=== PATIENT | male | born 1940 | race Caucasian/White ===

== ENCOUNTER 2017-02-10 10:44 | Inpatient (IN) | payer MEDICARE, MEDICAID ==
[~2017-02-10] VITALS: Ht 175.3 cm; Wt 81.3 kg
[2017-02-10] VITALS (8 sets, daily range): BP systolic 161–188; BP diastolic 72–76; PULSE 60–66; RESP 22–25; TEMP 98–98.2; O2SAT 94–95
[2017-02-10] MEDS ORDERED: D5-1/2 NS + KCL 20 MEQ INJ 1,000 ML IV SCH (14:49)
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
[2017-02-10] MEDS ORDERED: BISACODYL 10 MG SUPP RECTAL PRN (15:00)
[2017-02-10] MEDS ORDERED: PILL SPLITTER OTHER PRN (15:00)
[2017-02-10] MEDS ORDERED: LACTULOSE SYRUP 20 GM/30 ML CUP PO PRN (15:00)
[2017-02-10] MEDS ORDERED: ENOXAPARIN SODIUM 30 MG/0.3 ML SYRINGE SQ SCH (16:00)
[2017-02-10 16:24] LABS: BASOPHIL # 0.1 TH/MM3 (0-0.2); BASOPHIL % 0.4 % (0.0-2.0); HEMATOCRIT 32.8 % (39.0-51.0); HEMO FLAGS DIFF FINAL; LYMPH % 7.7 % (9.0-44.0); LYMPHOCYTE # 2.1 TH/MM3 (1.0-4.8); MEAN CORPUSCULAR HEMOGLOBIN 29.6 PG (27.0-34.0); MEAN CORPUSCULAR HGB CONC 32.9 % (32.0-36.0); MONO % 7.3 % (0.0-8.0); NEUT % 84.6 % (16.0-70.0); PLATELET COUNT 297 TH/MM3 (150-450); RED BLOOD COUNT 3.65 MIL/MM3 (4.50-5.90); RED CELL DISTRIBUTION WIDTH 13.9 % (11.6-17.2); WHITE BLOOD COUNT 27.2 TH/MM3 (4.0-11.0)
[2017-02-10 16:32] LABS: PROTHROMBIN TIME - PATIENT 10.8 SEC (9.8-11.6)
--- NOTE | 2017-02-10 16:36 | RADRPT ---
EXAM DATE/TIME: 02/10/2017 14:01 [facility] COMPARISON: No previous studies available for comparison. INDICATIONS : Short of breath. MEDICAL HISTORY : None. SURGICAL HISTORY : None. ENCOUNTER: Initial ACUITY: 1 day PAIN SCORE: Non-responsive. LOCATION: Bilateral chest FINDINGS: A single view of the chest demonstrates the lungs to be symmetrically aerated without evidence of mas s, infiltrate or effusion. The cardiomediastinal contours are unremarkable. Osseous structures are intact. Large calcified right paratracheal lymph node CONCLUSION: Normal examination. Elkin Doran MD on February 10, 2017 at 16:34 Board Certified Radiologist. This report was verified electronically.
[2017-02-10 16:49] LABS: BICARBONATE 26.2 MEQ/L (21.0-32.0); INDIRECT BILIRUBIN 0.1 MG/DL (0.0-0.8); TOTAL BILIRUBIN ADULT 0.3 MG/DL (0.2-1.0)
[2017-02-10 16:51] LABS: POTASSIUM 2.7 MEQ/L (3.5-5.1)
[2017-02-10] MEDS: MORPHINE SULFATE 2 MG/ML INJ IV PUSH PRN ×2 (17:19→20:25)
[2017-02-10] MEDS ORDERED: POTASSIUM PHOSPHATE INJ 30 MMOL in SODIUM CHLOR 0.9% 250 ML INJ 250 ML IV PRN (17:45)
[2017-02-10] MEDS ORDERED: POTASSIUM CHLOR 40 MEQ PREMIX 100 ML IV PRN ×2 (17:45)
[2017-02-10] MEDS ORDERED: POTASSIUM PHOSPHATE MONOBASIC 500 MG TAB PO PRN (17:45)
[2017-02-10] MEDS ORDERED: MAGNESIUM SULFATE INJ 2 GM in SODIUM CHLORIDE 0.9% INJ 96 ML IV PRN (17:45)
[2017-02-10] MEDS ORDERED: SODIUM PHOSPHATE INJ 30 MMOL in SODIUM CHLOR 0.9% 250 ML INJ 240 ML IV PRN (17:45)
[2017-02-10] MEDS ORDERED: MAGNESIUM OXIDE 400 MG TAB PO PRN (17:45)
[2017-02-10] MEDS ORDERED: POTASSIUM CHLORIDE 25 MEQ EFFERVESCENT TAB PO PRN (17:45)
[2017-02-10] MEDS ORDERED: POTASSIUM PHOSPHATE MONOBASIC 500 MG TAB PO/TUBE PRN (17:45)
[2017-02-10] MEDS ORDERED: POTASSIUM CHLOR 20 MEQ PREMIX 100 ML IV PRN (17:45)
[2017-02-10] MEDS ORDERED: MAGNESIUM SULFATE INJ 4 GM in SODIUM CHLORIDE 0.9% INJ 92 ML IV PRN (17:45)
[2017-02-10] MEDS ORDERED: SODIUM CHLOR 0.9% 1000 ML INJ 1,000 ML IV ONE (18:00)
[2017-02-10] MEDS ORDERED: CEFEPIME INJ 2,000 MG in SODIUM CHLORIDE 0.9% INJ 100 ML IV SCH (18:00)
[2017-02-10] MEDS ORDERED: RESP: ALBUTEROL 2.5 MG/IPRATROPIUM 0.5 MG NEB (PRN) NEB (18:15)
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
[2017-02-10] MEDS: SODIUM CHLOR 0.9% 1000 ML INJ 1,000 ML IV SCH (18:26)
[2017-02-10 18:47] LABS: MAGNESIUM 1.9 MG/DL (1.5-2.5)
[2017-02-10] MEDS: INSULIN ASPART SUPPLEMENTAL SCALE SQ SCH ×2 (18:51→22:00)
--- NOTE | 2017-02-10 19:17 | RADRPT ---
EXAM DATE/TIME: 02/10/2017 17:24 [facility] COMPARISON: No previous studies available for comparison. INDICATIONS : Abdomen pain. MEDICAL HISTORY : Hypertension. Carcinoma, prostate. Diabetes. SURGICAL HISTORY : Cataracts. ENCOUNTER: Initial ACUITY: 1 week PAIN SCORE: 4/10 LOCATION: Right upper quadrant MEASUREMENTS: LIVER: 18.8 cm length COMMON DUCT: 9 mm RIGHT KIDNEY: 10.5 x 4.9 x 5.4 cm FINDINGS: LIVER: Diffuse and fairly homogeneous coarse echotexture without focal lesion or significant ductal dilatati on. Hepatopedal flow is documented in the portal vein. COMMON DUCT: No intraluminal mass or stone visualized. GALLBLADDER: No shadowing stones seen. Gallbladder wall is prominent measuring up to 7 mm. No pericholecystic fl uid. PANCREAS: Not well seen RIGHT KIDNEY: No evidence of hydronephrosis, stone, or mass. CONCLUSION: 1. Hepatomegaly without focal lesion. 2. Gallbladder wall thickening and dilation of the common bile duct without demonstrable gallstones. May consider performing hepatobiliary tract scan to evaluate for acalculous cholecystitis. Mickey Carmona MD on February 10, 2017 at 19:12 Board Certified Radiologist. This report was verified electronically.
[2017-02-10] MEDS ORDERED: DILT1TAB8 PO (19:41)
[2017-02-10] MEDS ORDERED: TAMS0.4C4 PO (19:41)
[2017-02-10] MEDS ORDERED: GLIP5TAB8 PO (19:41)
[2017-02-10] MEDS ORDERED: ATOR10TA15 PO (19:41)
[2017-02-10] MEDS ORDERED: LISI20TA PO (19:41)
[2017-02-10] MEDS: METOPROLOL TARTRATE 25 MG TAB PO SCH (20:04)
[2017-02-10] MEDS: hydrALAZINE HCL 20 MG/ML VIAL IV PUSH PRN (20:05)
[2017-02-10] MEDS: CEFEPIME INJ 2,000 MG in SODIUM CHLORIDE 0.9% INJ 100 ML IV SCH (20:05)
[2017-02-10] MEDS: ATORVASTATIN 40 MG TAB PO SCH (20:06)
[2017-02-10] MEDS: DOCUSATE SODIUM 50 MG/SENNA 8.6 MG TAB PO SCH (20:06)
[2017-02-10] MEDS: metroNIDAZOLE 250 MG INJ 50 ML IV SCH ×2 (20:06→20:40)
[2017-02-10] MEDS ORDERED: MAGNESIUM HYDROXIDE SUSP 30 ML CUP PO PRN (21:00)
[2017-02-10] MEDS ORDERED: SENNOSIDES 8.6 MG TAB PO PRN (21:00)
[2017-02-10] MEDS: POTASSIUM CHLOR 20 MEQ PREMIX 100 ML IV PRN (21:03)
--- NOTE | 2017-02-10 22:22 | MB ---
cc: ABBY MENDOZA DATE OF CONSULTATION: 02/10/2017 REASON FOR CONSULTATION: Evaluate for possible cholecystitis. HISTORY OF PRESENT ILLNESS: Mr. Chicas is a pleasant 76 year-old gentleman who was transferred over from [facility], under the care of Dr. Zeferino Gomez for evaluation of abdominal pain. He states that over the last two weeks he has had continuous abdominal pain. He describes the pain as initially a burning-type pain that was in the upper abdomen, but now he states the pain is all over. Apparently he has been hospitalized at [facility], for several days where he has had a fairly extensive workup which was fairly unremarkable. Specifically he had two CTs of the abdomen and pelvis as well as an ultrasound and HIDA scan. There was a question of possible SMA stenosis and mesenteric ischemia was considered. He is also noted to have a thickened gallbladder wall on his ultrasound and some portal edema on the CT, however, apparently he had a HIDA scan which was fairly unremarkable according to the family. Unfortunately none of the reports are available, we only have the films. In reviewing the films, I do see the periportal edema that they talked about on the CT scan but on the HIDA scan, I see visualization of the gallbladder and apparent emptying. The patient states the pain is better than when he initially came in. He did have some nausea and vomiting on Wednesday but none since. He denies any fever or chills. He reports overall malaise and not feeling well, and loss of appetite. He was brought over to [facility] for further workup and evaluation. The patient states the pain began shortly after he had a shot for his prostate cancer on 01/25. He states he has had constipation and only two bowel movements in the last week. He denies any jaundice. He denies any fatty food intolerance. He denies any previous episodes of abdominal pain. PAST MEDICAL HISTORY: 1. Hypertension. 2. Metastatic prostate cancer. PAST SURGICAL HISTORY: No abdominal surgeries according to him. FAMILY HISTORY: Noncontributory. SOCIAL HISTORY He admits alcohol and cigarette use. [place] [facility]. REVIEW OF SYSTEMS: Please see HPI. PHYSICAL EXAMINATION VITAL SIGNS: Temperature is 98, pulse is 60, blood pressure 140/70, respiratory rate 20, O2 saturation 100% on 2 liters nasal cannula. GENERAL: An older gentleman sitting in his bed, who does not appear to be in significant distress. He is accompanied by his family. HEENT: Pupils equal, round reactive to light. Sclerae are white. Oropharynx is clear and moist. Neck is supple. No masses. Lungs: Clear to auscultation bilaterally. Heart: S1-S2 no murmur. Abdomen: Soft, he does have some right upper quadrant tenderness on deep palpation. No palpable liver or gallbladder that I can appreciate. He has active bowel sounds. He has no rebound or guarding. No obvious peritonitis. Extremities: Free range of motion x4. Neurologically: He is alert and oriented x3. LABORATORY DATA White blood cell count 27, hemoglobin 10, platelet count is 297. Electrolytes remarkable for hypokalemia at 2.7. His LFTs were all within normal limits including his alkaline phosphatase. Amylase is normal as well. IMAGING STUDIES Pending at this time. IMPRESSION Abdominal pain of undetermined etiology. PLAN At this point I reviewed all his imaging with Dr. Jesús Calloway review of his imaging with Dr. Jesús Laguna in radiology. The only thing Dr. Laguna noted was the periportal edema on the second CT scan. His gallbladder did appear slightly thickened on the initial ultrasound. Certainly the patient's elevated white count is concerning but his LFTs are all completely normal. On his physical examination he does localize some right upper quadrant pain. At this point I am unsure of the exact etiology of his pain. I have ordered repeat ultrasound to see if he has any pericholecystic fluid or any gallbladder wall thickening. Also will order lactate to see if he has an elevate lactate consistent with ischemic bowel, although his physical examination and history is not really too consistent with that. This has been going on for several weeks. Based on his further imaging and workup, will consider operative intervention. Although I am unsure of the exact etiology of the pain, we could consider diagnostic laparoscopy, although I am not sure that this would be too helpful at this point with no specific diagnosis. All this was discussed with the family at the bedside. Will follow up on his additional imaging and lab work. Thank you very much for allowing me to participate in his care. MD ANUSHA Campbell/MARK /5:14 PM /10:06 PM
[2017-02-11] VITALS (12 sets, daily range): BP systolic 155–188; BP diastolic 69–81; PULSE 62–75; RESP 20–26; TEMP 98.7–99.4; O2SAT 91–98
[2017-02-11] MEDS: INSULIN ASPART SUPPLEMENTAL SCALE SQ SCH ×6 (01:26→21:45)
[2017-02-11] MEDS: SODIUM CHLOR 0.9% 1000 ML INJ 1,000 ML IV SCH ×5 (02:00→21:17)
[2017-02-11] MEDS: POTASSIUM CHLOR 20 MEQ PREMIX 100 ML IV PRN ×4 (02:08→23:10)
[2017-02-11] MEDS: metroNIDAZOLE 250 MG INJ 50 ML IV SCH ×3 (03:46→21:33)
[2017-02-11 05:38] LABS: AUTOMATED NEUTROPHIL # 20.8 TH/MM3 (1.8-7.7); BASOPHIL % 0.2 % (0.0-2.0); EOSINOPHIL % 0.1 % (0.0-4.0); HEMATOCRIT 33.2 % (39.0-51.0); HEMO FLAGS DIFF FINAL; LYMPH % 8.1 % (9.0-44.0); MEAN CELL VOLUME 90.3 FL (80.0-100.0); MEAN CORPUSCULAR HEMOGLOBIN 30.4 PG (27.0-34.0); MEAN CORPUSCULAR HGB CONC 33.7 % (32.0-36.0); NEUT % 84.6 % (16.0-70.0); PLATELET COUNT 323 TH/MM3 (150-450); RED BLOOD COUNT 3.68 MIL/MM3 (4.50-5.90); RED CELL DISTRIBUTION WIDTH 14.1 % (11.6-17.2); WHITE BLOOD COUNT 24.6 TH/MM3 (4.0-11.0)
[2017-02-11 06:01] LABS: ALKALINE PHOSPHATASE 79 U/L (45-117); ALT (GPT) 20 U/L (12-78); ANION GAP 10 MEQ/L (5-15); AST (GOT) 18 U/L (15-37); BLOOD UREA NITROGEN 16 MG/DL (7-18); CHLORIDE 106 MEQ/L (98-107); GLOMERULAR FILTRATION RATE 71 ML/MIN (>89); SODIUM (NA) 140 MEQ/L (136-145); TOTAL BILIRUBIN ADULT 0.3 MG/DL (0.2-1.0)
[2017-02-11 06:15] LABS: POTASSIUM 2.9 MEQ/L (3.5-5.1)
--- NOTE | 2017-02-11 08:56 | PD.VS.PN ---
Subjective Subjective/Hospital Course Pt notes that he has less abdominal pain this morning; + hungry Objective Vitals/I&O Date Time Temp Pulse Resp B/P (MAP) Pulse Ox O2 Delivery O2 Flow Rate FiO2 02/11/17 07:00 94 Room Air 02/11/17 06:00 64 02/11/17 04:00 64 02/11/17 04:00 99.0 64 24 157/70 (99) 91 02/11/17 02:00 64 02/11/17 00:00 63 02/11/17 00:00 99.4 64 26 165/74 (104) 93 02/10/17 22:00 66 02/10/17 20:00 98.0 62 25 188/74 (112) 94 02/10/17 20:00 62 02/10/17 19:00 92 Room Air 02/10/17 18:00 60 02/10/17 16:00 61 02/10/17 15:52 98.2 62 22 173/76 (108) 94 02/10/17 15:00 61 02/10/17 14:52 61 22 161/72 (101) 95 02/10/17 14:45 61 02/10/17 14:45 93 Room Air 02/11/17 02/11/17 02/11/17 07:00 15:00 23:00 Intake Total 363 ml Output Total 825 ml Balance -462 ml Physical Exam + TTP R UQ no rebound palpable femoral pulses Laboratory Laboratory Tests Test 02/10/17 15:00 02/10/17 17:28 02/10/17 18:00 02/11/17 05:13 White Blood Count 27.2 24.6 Red Blood Count 3.65 3.68 Hemoglobin 10.8 11.2 Hematocrit 32.8 33.2 Mean Corpuscular Volume 90.0 90.3 Mean Corpuscular Hemoglobin 29.6 30.4 Mean Corpuscular Hemoglobin Concent 32.9 33.7 Red Cell Distribution Width 13.9 14.1 Platelet Count 297 323 Mean Platelet Volume 8.2 8.1 Neutrophils (%) (Auto) 84.6 84.6 Lymphocytes (%) (Auto) 7.7 8.1 Monocytes (%) (Auto) 7.3 7.0 Eosinophils (%) (Auto) 0.0 0.1 Basophils (%) (Auto) 0.4 0.2 Neutrophils # (Auto) 23.0 20.8 Lymphocytes # (Auto) 2.1 2.0 Monocytes # (Auto) 2.0 1.7 Eosinophils # (Auto) 0.0 0.0 Basophils # (Auto) 0.1 0.0 CBC Comment DIFF FINAL DIFF FINAL Differential Comment Prothrombin Time 10.8 Prothromb Time International Ratio 1.0 Activated Partial Thromboplast Time 29.0 Blood Urea Nitrogen 18 16 Creatinine 1.26 1.01 Random Glucose 166 166 Total Protein 6.7 6.7 Albumin 2.2 2.2 Calcium Level 8.2 8.1 Phosphorus Level 1.5 Magnesium Level 1.9 2.0 Alkaline Phosphatase 78 79 Aspartate Amino Transf (AST/SGOT) 18 18 Alanine Aminotransferase (ALT/SGPT) 20 20 Total Bilirubin 0.3 0.3 Direct Bilirubin 0.2 Sodium Level 135 140 Potassium Level 2.7 2.9 Chloride Level 102 106 Carbon Dioxide Level 26.2 24.0 Anion Gap 7 10 Estimat Glomerular Filtration Rate 55 71 Indirect Bilirubin 0.1 Amylase Level 16 Lactic Acid Level 1.2 Nasal Screen MRSA (PCR) MRSA NOT DETECTED Date/Time Source Procedure Growth Status 02/11/17 05:19 Blood Peripheral Aerobic Blood Culture Pending Received 02/11/17 05:19 Blood Peripheral Anaerobic Blood Culture Pending Received Imaging Last 48 hours Impressions Gall Bladder Ultrasound 02/10/17 0000 Signed Impressions: Service Date/Time: Friday, February 10, 2017 17:24 - CONCLUSION: 1. Hepatomegaly without focal lesion. 2. Gallbladder wall thickening and dilation of the common bile duct without demonstrable gallstones. May consider performing hepatobiliary tract scan to evaluate for acalculous cholecystitis. Mickey Carmona MD Chest X-Ray 02/10/17 0000 Signed Impressions: Service Date/Time: Friday, February 10, 2017 14:01 - CONCLUSION: Normal examination. Elkin Doran MD Assessment and Plan Plan Abdominal pain of unclear etiology - gallbladder vs atypical mesenteric ischemia 1. replete K 2. Bowel regimen as no BM in several days 3. appreciate general surgery input 4. If pain doesn't improve or gets worse, will perform mesenteric angiography and stenting tomorrow (WED) 5. ok to try po from my standpoint Zeferino Gomez MD FACS VI sales support engineer [facility] - Heart and Vascular Surgery at [facility] [phone] Zeferino Gomez MD Feb 11, 2017 08:56
--- NOTE | 2017-02-11 09:36 | HHI.PR ---
Subjective Subjective Notes no acute issues, still with persistent pain, no fevers wbc 24 k Objective Vitals/I&O Vital Signs Date Time Temp Pulse Resp B/P (MAP) Pulse Ox O2 Delivery O2 Flow Rate FiO2 02/11/17 07:00 94 Room Air 02/11/17 06:00 64 02/11/17 04:00 99.0 24 157/70 (99) Labs Laboratory Tests Test 02/10/17 15:00 02/10/17 17:28 02/10/17 18:00 02/11/17 05:13 White Blood Count 27.2 24.6 Red Blood Count 3.65 3.68 Hemoglobin 10.8 11.2 Hematocrit 32.8 33.2 Mean Corpuscular Volume 90.0 90.3 Mean Corpuscular Hemoglobin 29.6 30.4 Mean Corpuscular Hemoglobin Concent 32.9 33.7 Red Cell Distribution Width 13.9 14.1 Platelet Count 297 323 Mean Platelet Volume 8.2 8.1 Neutrophils (%) (Auto) 84.6 84.6 Lymphocytes (%) (Auto) 7.7 8.1 Monocytes (%) (Auto) 7.3 7.0 Eosinophils (%) (Auto) 0.0 0.1 Basophils (%) (Auto) 0.4 0.2 Neutrophils # (Auto) 23.0 20.8 Lymphocytes # (Auto) 2.1 2.0 Monocytes # (Auto) 2.0 1.7 Eosinophils # (Auto) 0.0 0.0 Basophils # (Auto) 0.1 0.0 CBC Comment DIFF FINAL DIFF FINAL Differential Comment Prothrombin Time 10.8 Prothromb Time International Ratio 1.0 Activated Partial Thromboplast Time 29.0 Blood Urea Nitrogen 18 16 Creatinine 1.26 1.01 Random Glucose 166 166 Total Protein 6.7 6.7 Albumin 2.2 2.2 Calcium Level 8.2 8.1 Phosphorus Level 1.5 Magnesium Level 1.9 2.0 Alkaline Phosphatase 78 79 Aspartate Amino Transf (AST/SGOT) 18 18 Alanine Aminotransferase (ALT/SGPT) 20 20 Total Bilirubin 0.3 0.3 Direct Bilirubin 0.2 Sodium Level 135 140 Potassium Level 2.7 2.9 Chloride Level 102 106 Carbon Dioxide Level 26.2 24.0 Anion Gap 7 10 Estimat Glomerular Filtration Rate 55 71 Indirect Bilirubin 0.1 Amylase Level 16 Lactic Acid Level 1.2 Nasal Screen MRSA (PCR) MRSA NOT DETECTED Test 02/11/17 09:24 Date/Time Source Procedure Growth Status 02/11/17 05:19 Blood Peripheral Aerobic Blood Culture Pending Received 02/11/17 05:19 Blood Peripheral Anaerobic Blood Culture Pending Received Abdomen: Other (mild right sided ttp, no rebound, ) A/P Assessment and Plan 76 y/o m with abdominal pain uncertain etiology mesenteric ischemia or acalculous mera, leukocytosis PLAN Ok for clear diet abx pain control possible dx lap, possible lap mera will discuss with Austin Lopez MD Feb 11, 2017 09:35
[2017-02-11 09:38] LABS: HEMATOCRIT 34.8 % (39.0-51.0); MEAN CELL VOLUME 89.9 FL (80.0-100.0); MEAN CORPUSCULAR HEMOGLOBIN 30.3 PG (27.0-34.0); MEAN CORPUSCULAR HGB CONC 33.7 % (32.0-36.0); PLATELET COUNT 315 TH/MM3 (150-450); RED BLOOD COUNT 3.87 MIL/MM3 (4.50-5.90); RED CELL DISTRIBUTION WIDTH 14.4 % (11.6-17.2); REVIEW FLAG FINAL; WHITE BLOOD COUNT 23.7 TH/MM3 (4.0-11.0)
[2017-02-11] MEDS ORDERED: INFLUENZA VIRUS VACCINE (QUADRIVALENT) 0.5 ML SYR IM ONE (10:00)
[2017-02-11] MEDS: DOCUSATE SODIUM 50 MG/SENNA 8.6 MG TAB PO SCH ×2 (10:07→20:22)
[2017-02-11] MEDS: ASPIRIN 325 MG TAB PO SCH (10:07)
[2017-02-11] MEDS: CEFEPIME INJ 2,000 MG in SODIUM CHLORIDE 0.9% INJ 100 ML IV SCH ×2 (10:07→20:23)
[2017-02-11] MEDS: PANTOPRAZOLE SOD 40 MG DELAYED RELEASE TAB PO SCH (10:07)
[2017-02-11] MEDS: METOPROLOL TARTRATE 25 MG TAB PO SCH ×2 (10:08→20:22)
--- NOTE | 2017-02-11 10:39 | EKG ---
Date Performed: 02/10/2017 Time Performed: 16:54:57 PTAGE: 76 years EKG: SINUS BRADYCARDIA WITH FIRST DEGREE AV BLOCK NONSPECIFIC ST & T-WAVE ABNORMALITY ABNORMAL E CG NO PREVIOUS TRACING DOCTOR: Salty Gil Interpretating Date/Time 02/11/2017 10:38:03
[2017-02-11] MEDS: hydrALAZINE HCL 20 MG/ML VIAL IV PUSH PRN ×3 (11:54→23:10)
--- NOTE | 2017-02-11 14:23 | HHI.CCPN ---
Objective Vital Signs Date Time Temp Pulse Resp B/P (MAP) Pulse Ox O2 Delivery O2 Flow Rate FiO2 02/11/17 12:00 62 02/11/17 12:00 98.9 26 165/74 (104) 98 02/11/17 07:00 Room Air Intake and Output 02/11/17 02/11/17 02/12/17 08:00 16:00 00:00 Intake Total 363 ml Output Total 825 ml Balance -462 ml Result Diagram: 02/11/17 0924 02/11/17 0513 Madelin Connolly MD Feb 11, 2017 14:23
--- NOTE | 2017-02-11 14:44 | HHI.CCPN ---
Subjective Remarks/Hospital Course Patient is a 70-year-old male with past medical history significant for hypertension, diabetes, COPD, continue smoking, metastatic prostate cancer who was admitted to outside hospital in [place] for with 2 weeks of abdominal pain. Apparently he had WBC count in 30,000s and had gallbladder sludge on US but HIDA scan was negative per report. CT showed mesenteric stenosis and patient was transferred to [place] under Dr. Gomez. According to patient his abdominal pain started after getting hormonal therapy (anti-testosterone therapy ) for metastatic prostate CA on 01/25. No diarrhea, but has constipation. I evaluated the patient in the ICU. He appears to be lying comfortably on the bed. On clinical exam has severe tenderness in the right lower quadrant and moderate tenderness in the epigastric region. Abdominal ultrasound had been performed but patient report pending at this time. Patient's white count is 27, 000 and clinical exam is concerning for acute cholecystitis. Gen. surgery Dr. viveros has seen him. I will check blood culture urine culture, place him on cefepime and Flagyl. Patient may need cholecystostomy/cholecystectomy vs mesenteric artery stenting based on clinical course. Discussed with Dr. Gomez and Dr. Viveros 02/11: Subjectively feels slightly better. press tender in the right upper quadrant. WBC count is improving. Discussed with Dr. Duran today- he is considering diagnostic laparoscopy and possible lap cholecystectomy if indicated Objective Vital Signs Date Time Temp Pulse Resp B/P (MAP) Pulse Ox O2 Delivery O2 Flow Rate FiO2 02/11/17 12:00 62 02/11/17 12:00 98.9 26 165/74 (104) 98 02/11/17 07:00 Room Air Intake and Output 02/11/17 02/11/17 02/12/17 08:00 16:00 00:00 Intake Total 363 ml Output Total 825 ml Balance -462 ml Result Diagram: 02/11/1792302/11/17 0513 Objective Remarks GENERAL: Alert awake in no distress SKIN: Warm dry HEAD: AT/NC EYES: Pupils equal round and reactive. No scleral icterus. No injection or drainage. ENT: Nose without bleeding. Airway patent. NECK: Trachea midline. No JVD or lymphadenopathy. Supple, nontender, CARDIOVASCULAR: Regular rate and rhythm without murmurs, gallops, or rubs. RESPIRATORY: Clear to auscultation. Breath sounds equal bilaterally. No wheezes , rales, or rhonchi. GASTROINTESTINAL: Abdomen soft, moderate to severe RUQ tenderness and moderate tenderness epigastric region NEUROLOGICAL: AO x3. No focal deficits. 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 Otherwise minimize sedation RESP: - Nasal cannula oxygen. DuoNeb every 6 hours when necessary - Strongly advised to quit smoking CV: - Normal saline IV fluids maintenance 125 ml per hour - Lactic acid normal GI/ID: - Clear liquid diet. IV famotidine - GB US -shows gallbladder wall thickening and dilatation. Consider HIDA - Broad-spectrum antibiotics with cefepime and Flagyl - Gen surgery considering diagnostic laparoscopy and possible lap cholecystectomy - F/u culture - Gen. surgery consulted, vascular surgery Dr. Gomez - If abdominal pain and white count not improving may need mesenteric artery stenting - Consider GI consult and EGD/colonoscopy if not improving - Stool for Hemoccult, stool H pylori : - Monitor renal function closely. Accurate I/O HEME: - Leukocytosis most likely secondary to sepsis, however mesenteric ischemia cannot be ruled out completely at this time ENDO: - Electrolyte replacement per protocol - Sliding scale insulin PROPH: - Bilateral lower extremity SCDs. Lovenox, Famotidine LINES: - Utilize peripheral IVs, central line if needed Level 2 Madelin Connolly MD Feb 11, 2017 14:44
[2017-02-11] MEDS: POTASSIUM CHLORIDE 25 MEQ EFFERVESCENT TAB PO SCH ×2 (15:37→20:22)
[2017-02-11] MEDS: ENOXAPARIN SODIUM 30 MG/0.3 ML SYRINGE SQ SCH (15:37)
[2017-02-11] MEDS: ATORVASTATIN 40 MG TAB PO SCH (20:22)
[2017-02-12] VITALS (13 sets, daily range): BP systolic 139–164; BP diastolic 63–98; PULSE 72–88; RESP 18–27; TEMP 97.2–99.1; O2SAT 92–100
[2017-02-12] MEDS: INSULIN ASPART SUPPLEMENTAL SCALE SQ SCH ×6 (02:00→22:40)
[2017-02-12] MEDS: POTASSIUM CHLOR 20 MEQ PREMIX 100 ML IV PRN ×2 (02:00→05:45)
[2017-02-12] MEDS: hydrALAZINE HCL 20 MG/ML VIAL IV PUSH PRN ×3 (03:22→20:08)
[2017-02-12] MEDS: metroNIDAZOLE 250 MG INJ 50 ML IV SCH ×3 (04:26→19:45)
[2017-02-12] MEDS: SODIUM CHLOR 0.9% 1000 ML INJ 1,000 ML IV SCH (04:36)
[2017-02-12 04:53] LABS: AUTOMATED NEUTROPHIL # 13.2 TH/MM3 (1.8-7.7); BASOPHIL % 0.3 % (0.0-2.0); EOSINOPHIL # 0.1 TH/MM3 (0-0.4); EOSINOPHIL % 0.4 % (0.0-4.0); HEMATOCRIT 30.8 % (39.0-51.0); HEMO FLAGS DIFF FINAL; LYMPH % 10.6 % (9.0-44.0); LYMPHOCYTE # 1.7 TH/MM3 (1.0-4.8); MEAN CELL VOLUME 89.6 FL (80.0-100.0); MEAN CORPUSCULAR HGB CONC 33.5 % (32.0-36.0); MONO % 8.4 % (0.0-8.0); NEUT % 80.3 % (16.0-70.0); PLATELET COUNT 291 TH/MM3 (150-450); RED BLOOD COUNT 3.44 MIL/MM3 (4.50-5.90); RED CELL DISTRIBUTION WIDTH 14.6 % (11.6-17.2); WHITE BLOOD COUNT 16.4 TH/MM3 (4.0-11.0)
[2017-02-12 05:23] LABS: BICARBONATE 19.7 MEQ/L (21.0-32.0); CALCIUM-PROTEIN CORRECTED 7.5 MG/DL (8.5-10.1); MAGNESIUM 1.6 MG/DL (1.5-2.5); TOTAL BILIRUBIN ADULT 0.3 MG/DL (0.2-1.0)
[2017-02-12 05:30] LABS: POTASSIUM 2.9 MEQ/L (3.5-5.1)
[2017-02-12] MEDS ORDERED: LACTATED RINGER'S 1000 ML IV PRN (07:00)
[2017-02-12] MEDS ORDERED: SODIUM CHLORID 0.9% 500 ML IV PRN (07:00)
[2017-02-12] MEDS ORDERED: POVIDONE IODINE 5% (ANTISEPSIS KIT) 4 APPLICATIONS EACH NARE PRN (07:00)
[2017-02-12] MEDS ORDERED: INSULIN HUMAN REGULAR 1,000 UNITS/10 ML VIAL SQ PRN (07:00)
[2017-02-12] MEDS ORDERED: CHLORHEXIDINE GLUCONATE 2 % 1 PACK (2 CLOTHS) TOPICAL PRN (07:00)
[2017-02-12] MEDS ORDERED: BUPIVACAINE/EPINEPHRINE 0.25% PF 30 ML VIAL ONE (07:07)
[2017-02-12] MEDS ORDERED: MAGNESIUM SULFATE 1 GM PREMIX 100 ML IV ONE (08:00)
--- NOTE | 2017-02-12 08:11 | HHI.CCPN ---
Subjective Remarks/Hospital Course Patient is a 70-year-old male with past medical history significant for hypertension, diabetes, COPD, continue smoking, metastatic prostate cancer who was admitted to outside hospital in [place] for with 2 weeks of abdominal pain. Apparently he had WBC count in 30,000s and had gallbladder sludge on US but HIDA scan was negative per report. CT showed mesenteric stenosis and patient was transferred to [place] under Dr. Gomez. According to patient his abdominal pain started after getting hormonal therapy (anti-testosterone therapy ) for metastatic prostate CA on 01/25. No diarrhea, but has constipation. I evaluated the patient in the ICU. He appears to be lying comfortably on the bed. On clinical exam has severe tenderness in the right lower quadrant and moderate tenderness in the epigastric region. Abdominal ultrasound had been performed but patient report pending at this time. Patient's white count is 27, 000 and clinical exam is concerning for acute cholecystitis. Gen. surgery Dr. viveros has seen him. I will check blood culture urine culture, place him on cefepime and Flagyl. Patient may need cholecystostomy/cholecystectomy vs mesenteric artery stenting based on clinical course. Discussed with Dr. Gomez and Dr. Viveros 02/11: Subjectively feels slightly better. wreath machine tender in the right upper quadrant. WBC count is improving. Discussed with Dr. Duran today- he is considering diagnostic laparoscopy and possible lap cholecystectomy if indicated 02/12: To OR for diagnostic lap today. Right upper quadrant tenderness is improved but still present. WBC count down to 16.4, with antibiotics cefepime and Flagyl on board. Clinical presentation is still consistent with cholecystitis Objective Vital Signs Date Time Temp Pulse Resp B/P (MAP) Pulse Ox O2 Delivery O2 Flow Rate FiO2 02/12/17 07:00 97 Room Air 02/12/17 06:00 76 02/12/17 04:00 98.6 26 153/67 (95) Intake and Output 02/12/17 02/12/17 02/13/17 08:00 16:00 00:00 Intake Total 1777 ml Output Total 700 ml Balance 1077 ml Result Diagram: 02/12/1742602/12/17426 Objective Remarks GENERAL: Alert awake in no distress SKIN: Warm dry HEAD: AT/NC EYES: Pupils equal round and reactive. No scleral icterus. No injection or drainage. ENT: Nose without bleeding. Airway patent. NECK: Trachea midline. No JVD or lymphadenopathy. Supple, nontender, CARDIOVASCULAR: Regular rate and rhythm without murmurs, gallops, or rubs. RESPIRATORY: Clear to auscultation. Breath sounds equal bilaterally. No wheezes , rales, or rhonchi. GASTROINTESTINAL: Abdomen soft, moderate RUQ tenderness and mild tenderness epigastric region NEUROLOGICAL: AO x3. No focal deficits. 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 Otherwise minimize sedation RESP: - Nasal cannula oxygen. DuoNeb every 6 hours when necessary - Strongly advised to quit smoking CV: - Normal saline IV fluids maintenance 125 ml per hour - Lactic acid normal GI/ID: - Clear liquid diet., was NPO after midnight for OR. IV famotidine - GB US -shows gallbladder wall thickening and dilatation. OR for diagnostic laparoscopy with Dr. viveros today - Broad-spectrum antibiotics with cefepime and Flagyl - F/u culture. Wbc downtrending - Vascular surgery Dr. Gomez may do mesenteric artery stenting depending on clinical course - Consider GI consult and EGD/colonoscopy if not improving - Stool for Hemoccult, stool H [id number] : - Monitor renal function closely. Accurate I/O HEME: - Leukocytosis most likely secondary to sepsis, however mesenteric ischemia cannot be ruled out completely at this time - Leukocytosis trending down with IV antibiotics ENDO: - Persistent hypokalemia. Continue scheduled and when necessary replacement - Continue magnesium replacement also - Electrolyte replacement per protocol - Sliding scale insulin PROPH: - Bilateral lower extremity SCDs. Lovenox, Famotidine LINES: - Utilize peripheral IVs, central line if needed Level 2 Madelin Connolly MD Feb 12, 2017 08:11
[2017-02-12] MEDS: NS + KCL 40 MEQ INJ 1,000 ML IV SCH ×2 (09:30→18:01)
[2017-02-12] MEDS ORDERED: ACETAMINOPHEN/HYDROcodone 325 MG/5 MG TAB PO PRN (09:45)
--- NOTE | 2017-02-12 09:45 | MP ---
cc: ABBY MENDOZA M.D. DATE OF SURGERY: 02/12/2017 PREOPERATIVE DIAGNOSIS: 1. Persistent abdominal pain. 2. History of metastatic prostate cancer. POSTOPERATIVE DIAGNOSIS 1. Persistent abdominal pain. 2. History of metastatic prostate cancer. 3. Gangrenous cholecystitis. PROCEDURE PERFORMED 1. Diagnostic laparoscopy 2. Laparoscopic cholecystectomy SURGEON Abby Mendoza MD. ANESTHESIA General endotracheal COMPLICATIONS None. INDICATIONS FOR PROCEDURE Mr. Chicas is a 76-year-old gentleman who has had about a 2-week history of abdominal pain. This occurred shortly after getting a shot for his prostate cancer. He had a very extensive workup at the [facility] which has not revealed the etiology of his abdominal pain. There was concern about some possible mesenteric ischemia due to his atherosclerosis, noted on his CT scan. He is transferred over Dr. Zeferino Gomez who evaluated him and was concerned about possible cholecystitis. A general surgery consult was obtained. Should be noted the patient has had hiatus scan of the outside facility which was read as "normal". He also had an ultrasound showed a thickened gallbladder wall without pericholecystic fluid or edema. His LFTs were also normal. The patient did have a marked elevation of white count in the 20s. Because it was persistent pain. He was offered diagnostic laparoscopy possible cholecystectomy. Risks and benefits were reviewed the family and they were agreeable. DETAILS: The patient was identified, brought to the operating placed supine on the table. After adequate general tracheal anesthesia achieved the abdomen was prepped and draped in standard surgical fashion. Infraumbilical space was anesthetized with 0.25% Marcaine. Infraumbilical incision was made. Dissection was carried down subcutaneous tissue midline fascia. Midline fascia was incised sharply. A finger was placed a peritoneal cavity without difficulty. A blunt balloon trocar was inserted and was insufflated 15 mm using CO2 gas. Next two 5 mm trocars were placed in the right upper quadrant after anesthetizing the skin and subcutaneous tissue 0.25% Marcaine. Review of the abdominal cavity revealed no gross abnormalities. Normal abdomen. Small bowel and colon were seen and noted be of normal size and caliber, normal size and color and were seen to be actively parastalsing. Attention was now directed right upper quadrant. The right upper quadrant. Omentum was encasing the liver. The omentum was then peeled down and immediately we identified a gangrenous gallbladder. There was multiple areas of necrosis. As soon was we attempted to grab the gallbladder it ruptured. Suction infrastructure design engineer was then introduced and the bile was removed from the abdominal cavity. Gallbladder was then elevated cephalad. The gallbladder was completely gangrenous and basically fell apart where ever we grabbed it. The gallbladder neck was carefully dissected with hydrodissection. The cystic artery and cystic duct were identified. Cystic duct was also noted to have some ischemic changes. We placed two clips proximally as far as we could and one clip distally and then clipped the artery as well. The gallbladder was then removed from the hepatic fossa using electrocautery Bovie. Gallbladder was placed into an Endopouch bag and brought to the infraumbilical port. Gallbladder inspected and found be necrotic and sent to pathology for analysis. Next the abdominal cavity revisualized. Liver bed was completely hemostatic. The right upper quadrant where was rinsed out with 2 liters warm saline solution. Clips were inspected on the cystic artery and cystic duct stump. There is no gross leakage of bile from the cystic duct stump. There is no bleeding from the cystic artery. Because of the necrotic changes in the purulent in the right upper quadrant I have elected to place a 7-Persian Stanley-Oakley drain in the hepatic fossa adjacent to the clips. I was also concerned about the viability of the cystic duct as it was quite thin and did have some ischemic changes. As stated we did go as proximally as we could on it without compromising the common bile duct. Drain was placed and secured with 3-0 nylon suture. Again the right upper quadrant as irrigated out a second time. The fluid was noted be clear. Clips were checked one more time found to be intact without evidence of leakage of bile or bleeding. All trocars were then removed under direct vision. Drain was secured with 3-0 nylon. Midline fascia was closed with 0 Vicryl in a [id number] fashion. Skin was closed with 4-0 Monocryl. The patient tolerated the procedure well, was awakened, brought to recovery in stable condition. MD ANUSHA Campbell/mike /9:06 AM /9:15 AM
[2017-02-12] MEDS ORDERED: DO NOT ADM ANY ANTICOAGULANT DRUGS PRN (10:15)
[2017-02-12] MEDS: CEFEPIME INJ 2,000 MG in SODIUM CHLORIDE 0.9% INJ 100 ML IV SCH ×2 (10:54→19:45)
[2017-02-12] MEDS: ASPIRIN 325 MG TAB PO SCH (11:00)
[2017-02-12] MEDS: MAGNESIUM OXIDE 400 MG TAB PO SCH ×2 (11:00→19:44)
[2017-02-12] MEDS: POTASSIUM CHLORIDE 25 MEQ EFFERVESCENT TAB PO SCH ×2 (11:01→19:46)
[2017-02-12] MEDS: DOCUSATE SODIUM 50 MG/SENNA 8.6 MG TAB PO SCH ×2 (11:01→19:45)
[2017-02-12] MEDS: METOPROLOL TARTRATE 25 MG TAB PO SCH ×2 (11:01→19:45)
[2017-02-12] MEDS: PANTOPRAZOLE SOD 40 MG DELAYED RELEASE TAB PO SCH (11:01)
[2017-02-12] MEDS ORDERED: LIDOCAINE HCL 1% PF 5 ML SYRINGE OTHER ONE (12:00)
[2017-02-12] MEDS ORDERED: GLYCOPYRROLATE 1 MG/5 ML SYRINGE IV PUSH ONE (12:00)
[2017-02-12] MEDS ORDERED: NEOSTIGMINE 3 MG/3 ML SYR IV ONE (12:00)
[2017-02-12] MEDS ORDERED: ESMOLOL HCL 100 MG/10 ML VIAL IV ONE (12:00)
[2017-02-12] MEDS ORDERED: ROCURONIUM INJ 50 MG/5 ML SYRINGE IV PUSH ONE (12:00)
[2017-02-12] MEDS ORDERED: DEXAMETHASONE SOD PHOS 4 MG/ML VIAL IV ONE (12:00)
[2017-02-12] MEDS ORDERED: PROPOFOL 200 MG/20 ML AMP IV ONE (12:00)
[2017-02-12] MEDS ORDERED: ONDANSETRON HCL 4 MG/2 ML VIAL IV PUSH ONE (12:00)
[2017-02-12] MEDS: ENOXAPARIN SODIUM 30 MG/0.3 ML SYRINGE SQ SCH (15:10)
[2017-02-12 15:47] LABS: MAGNESIUM 2.5 MG/DL (1.5-2.5)
[2017-02-12 17:27] LABS: POTASSIUM 3.8 MEQ/L (3.5-5.1)
[2017-02-12] MEDS: ENALAPRILAT 2.5 MG/2 ML VIAL IV PUSH PRN (17:58)
[2017-02-12] MEDS: ACETAMINOPHEN/HYDROcodone 325 MG/5 MG TAB PO PRN ×2 (19:44→23:51)
[2017-02-12] MEDS: ATORVASTATIN 40 MG TAB PO SCH (19:45)
[2017-02-12] MEDS ORDERED: MAGNESIUM SULFATE INJ 2 GM in SODIUM CHLORIDE 0.9% INJ 96 ML IV PRN ×2 (20:15→20:30)
[2017-02-12] MEDS ORDERED: POTASSIUM CHLOR 40 MEQ PREMIX 100 ML IV PRN ×4 (20:15→20:30)
[2017-02-12] MEDS ORDERED: POTASSIUM CHLORIDE 25 MEQ EFFERVESCENT TAB PO PRN ×2 (20:15→20:30)
[2017-02-12] MEDS ORDERED: MAGNESIUM SULFATE INJ 4 GM in SODIUM CHLORIDE 0.9% INJ 92 ML IV PRN ×2 (20:15→20:30)
[2017-02-12] MEDS ORDERED: MAGNESIUM OXIDE 400 MG TAB PO PRN ×2 (20:15→20:30)
[2017-02-12] MEDS ORDERED: POTASSIUM CHLOR 20 MEQ PREMIX 100 ML IV PRN ×4 (20:15→20:30)
[2017-02-12] MEDS ORDERED: POTASSIUM PHOSPHATE INJ 30 MMOL in SODIUM CHLOR 0.9% 250 ML INJ 250 ML IV PRN ×2 (20:15→20:30)
[2017-02-12] MEDS ORDERED: SODIUM PHOSPHATE INJ 30 MMOL in SODIUM CHLOR 0.9% 250 ML INJ 240 ML IV PRN ×2 (20:15→20:30)
[2017-02-12] MEDS ORDERED: POTASSIUM PHOSPHATE MONOBASIC 500 MG TAB PO PRN ×2 (20:15→20:30)
[2017-02-12] MEDS ORDERED: POTASSIUM PHOSPHATE MONOBASIC 500 MG TAB PO/TUBE PRN ×2 (20:15→20:30)
[2017-02-13] VITALS (8 sets, daily range): BP systolic 158–202; BP diastolic 67–95; PULSE 66–80; RESP 18–20; TEMP 96.3–97.3; O2SAT 93–97
[2017-02-13] MEDS: INSULIN ASPART SUPPLEMENTAL SCALE SQ SCH ×6 (02:23→21:36)
[2017-02-13] MEDS: metroNIDAZOLE 250 MG INJ 50 ML IV SCH ×3 (04:16→20:22)
[2017-02-13 05:09] LABS: AUTOMATED NEUTROPHIL # 14.6 TH/MM3 (1.8-7.7); BASOPHIL % 0.1 % (0.0-2.0); HEMATOCRIT 31.4 % (39.0-51.0); HEMO FLAGS DIFF FINAL; LYMPH % 7.3 % (9.0-44.0); LYMPHOCYTE # 1.3 TH/MM3 (1.0-4.8); MEAN CELL VOLUME 90.7 FL (80.0-100.0); MEAN CORPUSCULAR HEMOGLOBIN 30.1 PG (27.0-34.0); MEAN CORPUSCULAR HGB CONC 33.2 % (32.0-36.0); MONO % 7.9 % (0.0-8.0); NEUT % 84.7 % (16.0-70.0); PLATELET COUNT 328 TH/MM3 (150-450); RED BLOOD COUNT 3.46 MIL/MM3 (4.50-5.90); RED CELL DISTRIBUTION WIDTH 14.2 % (11.6-17.2); WHITE BLOOD COUNT 17.2 TH/MM3 (4.0-11.0)
[2017-02-13] MEDS: NS + KCL 40 MEQ INJ 1,000 ML IV SCH (05:12)
[2017-02-13 05:38] LABS: BICARBONATE 19.3 MEQ/L (21.0-32.0); MAGNESIUM 2.3 MG/DL (1.5-2.5); POTASSIUM 4.1 MEQ/L (3.5-5.1); TOTAL BILIRUBIN ADULT 0.2 MG/DL (0.2-1.0)
[2017-02-13 05:42] LABS: CALCIUM-PROTEIN CORRECTED 7.2 MG/DL (8.5-10.1)
[2017-02-13] MEDS ORDERED: CALCIUM GLUCONATE INJ 1 GM in SODIUM CHLORIDE 0.9% INJ 90 ML IV ONE (07:00)
--- NOTE | 2017-02-13 08:38 | PD.VS.PN ---
Subjective Subjective/Hospital Course POD#1 s/p lap mera looks great this morning; tolerating regular diet without postprandial pain Objective Vitals/I&O Date Time Temp Pulse Resp B/P (MAP) Pulse Ox O2 Delivery O2 Flow Rate FiO2 02/13/17 04:38 97.3 80 18 177/81 (113) 96 02/13/17 00:56 96.7 71 18 159/69 (99) 97 02/12/17 20:00 97.2 79 18 153/70 (97) 92 02/12/17 20:00 87 02/12/17 19:57 96 02/12/17 19:00 94 Room Air 02/12/17 18:00 88 02/12/17 17:23 100 Nasal Cannula 2.00 02/12/17 16:00 79 02/12/17 16:00 98.6 78 26 154/98 (116) 99 02/12/17 14:00 75 02/12/17 12:00 79 02/12/17 12:00 98.4 73 24 164/73 (103) 99 02/12/17 10:00 85 02/12/17 09:45 98.4 77 24 133/60 (84) 96 Nasal Cannula 2 02/12/17 09:30 80 24 134/60 (84) 96 Nasal Cannula 2 02/12/17 09:15 91 24 131/59 (83) 94 Nasal Cannula 2 02/12/17 09:11 98.7 94 24 138/61 (86) 93 Nasal Cannula 2 02/13/17 02/13/17 02/13/17 07:00 15:00 23:00 Intake Total 1050 ml Output Total 650 ml Balance 400 ml Physical Exam abdomen minimally tender, no peritonitis R UQ drain in place Laboratory Laboratory Tests Test 02/12/17 14:45 02/12/17 16:01 02/13/17 04:20 Potassium Level 3.8 4.1 Phosphorus Level 1.0 Magnesium Level 2.5 2.3 White Blood Count 17.2 Red Blood Count 3.46 Hemoglobin 10.4 Hematocrit 31.4 Mean Corpuscular Volume 90.7 Mean Corpuscular Hemoglobin 30.1 Mean Corpuscular Hemoglobin Concent 33.2 Red Cell Distribution Width 14.2 Platelet Count 328 Mean Platelet Volume 8.1 Neutrophils (%) (Auto) 84.7 Lymphocytes (%) (Auto) 7.3 Monocytes (%) (Auto) 7.9 Eosinophils (%) (Auto) 0.0 Basophils (%) (Auto) 0.1 Neutrophils # (Auto) 14.6 Lymphocytes # (Auto) 1.3 Monocytes # (Auto) 1.4 Eosinophils # (Auto) 0.0 Basophils # (Auto) 0.0 CBC Comment DIFF FINAL Differential Comment Blood Urea Nitrogen 17 Creatinine 1.13 Random Glucose 130 Total Protein 5.9 Albumin 2.0 Calcium Level 6.6 Alkaline Phosphatase 78 Aspartate Amino Transf (AST/SGOT) 45 Alanine Aminotransferase (ALT/SGPT) 28 Total Bilirubin 0.2 Sodium Level 140 Chloride Level 112 Carbon Dioxide Level 19.3 Anion Gap 9 Estimat Glomerular Filtration Rate 63 Protein Corrected Calcium 7.2 Date/Time Source Procedure Growth Status 02/11/17 05:19 Blood Peripheral Aerobic Blood Culture - Preliminary NO GROWTH IN 1 DAY Resulted 02/11/17 05:19 Blood Peripheral Anaerobic Blood Culture - Preliminary NO GROWTH IN 1 DAY Resulted Assessment and Plan Plan Pt underwent lap mera yesterday for what intra-operatively appeared to be gangrenous cholecystitis 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
[2017-02-13] MEDS: POTASSIUM CHLORIDE 25 MEQ EFFERVESCENT TAB PO SCH ×2 (10:29→20:31)
[2017-02-13] MEDS: METOPROLOL TARTRATE 25 MG TAB PO SCH ×2 (10:30→20:24)
[2017-02-13] MEDS: PANTOPRAZOLE SOD 40 MG DELAYED RELEASE TAB PO SCH (10:30)
[2017-02-13] MEDS: DOCUSATE SODIUM 50 MG/SENNA 8.6 MG TAB PO SCH ×2 (10:30→20:24)
[2017-02-13] MEDS: MAGNESIUM OXIDE 400 MG TAB PO SCH ×2 (10:31→20:30)
[2017-02-13] MEDS: CEFEPIME INJ 2,000 MG in SODIUM CHLORIDE 0.9% INJ 100 ML IV SCH ×2 (10:34→20:31)
--- NOTE | 2017-02-13 11:04 | HHI.PR ---
Subjective Remarks Pt states he feels much better. Denies any pain at this time. Pt tolerating po. no nausea or vomiting Objective Vitals Vital Signs Date Time Temp Pulse Resp B/P (MAP) Pulse Ox O2 Delivery O2 Flow Rate FiO2 02/13/17 08:00 97.3 74 20 166/67 (100) 93 02/13/17 04:38 97.3 80 18 177/81 (113) 96 02/13/17 00:56 96.7 71 18 159/69 (99) 97 02/12/17 20:00 97.2 79 18 153/70 (97) 92 02/12/17 20:00 87 02/12/17 19:57 96 02/12/17 19:00 94 Room Air 02/12/17 18:00 88 02/12/17 17:23 100 Nasal Cannula 2.00 02/12/17 16:00 79 02/12/17 16:00 98.6 78 26 154/98 (116) 99 02/12/17 14:00 75 02/12/17 12:00 79 02/12/17 12:00 98.4 73 24 164/73 (103) 99 I/O 02/12/17 02/12/17 02/12/17 02/13/17 02/13/17 02/13/17 07:00 15:00 23:00 07:00 15:00 23:00 Intake Total 1927 ml 1000 ml 3150 ml 1050 ml Output Total 700 ml 90 ml 2400 ml 650 ml Balance 1227 ml 910 ml 750 ml 400 ml Intake Oral 240 ml 0 ml 1500 ml IV Total 1687 ml 1000 ml 1650 ml 1050 ml Output Urine Total 700 ml 2100 ml 600 ml Stool Total 250 ml Drainage Total 40 ml 50 ml 50 ml Estimated Blood Loss 50 ml # Voids 1 0 # Bowel Movements 1 Result Diagram: 02/13/17 0420 02/13/17 0420 Imaging Last Impressions Gall Bladder Ultrasound 02/10/17 0000 Signed Impressions: Service Date/Time: Friday, February 10, 2017 17:24 - CONCLUSION: 1. Hepatomegaly without focal lesion. 2. Gallbladder wall thickening and dilation of the common bile duct without demonstrable gallstones. May consider performing hepatobiliary tract scan to evaluate for acalculous cholecystitis. Mickey Carmona MD Chest X-Ray 02/10/17 0000 Signed Impressions: Service Date/Time: Friday, February 10, 2017 14:01 - CONCLUSION: Normal examination. Elkin Doran MD Objective Remarks GENERAL: Alert awake. laying in bed, appears comfortable. EYES: EOMI ENT: Airway patent. NECK: Trachea midline. CARDIOVASCULAR: Regular rate and rhythm without murmurs RESPIRATORY: Clear to auscultation. Breath sounds equal bilaterally. No wheezes GASTROINTESTINAL: Abdomen soft, non tender at this time, no guarding, steri's in place, drain in place w serous drainage NEUROLOGICAL: AO x3. No focal deficits. 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 RESP: - Nasal cannula oxygen. DuoNeb every 6 hours when necessary - Strongly advised to quit smoking CV: - Normal saline w KCl maintenance 100 ml per hour. Pt is tolerating PO. HLIV - Lactic acid normal GI/ID: - regular diet. - GB US -shows gallbladder wall thickening and dilatation. s/p diagnostic laparoscopy with Dr. aguilar - Broad-spectrum antibiotics with cefepime and Flagyl - Blood culture neg x 2days. Wbc downtrending - Vascular surgery Dr. 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 Pt can be discharged home from his standpoint. f.u w him in 1 month and will follow long-term for visceral artery occlusive disease - Consider GI consult and EGD/colonoscopy if not improving - Stool for Hemoccult, stool H [id number] : - Monitor renal function closely. Accurate I/O HEME: - Leukocytosis trending down with IV antibiotics ENDO: - Persistent hypokalemia, now resolved. - Continue magnesium replacement also - Replace calcium. - ISS PROPH: - Bilateral lower extremity SCDs. Lovenox, Famotidine Discharge Planning per primary team. Annalise Mohamud MD Feb 13, 2017 11:04
[2017-02-13] MEDS: CALCIUM CARBONATE 500 MG CHEWABLE TAB CHEW SCH ×2 (11:15→20:24)
[2017-02-13] MEDS: ACETAMINOPHEN/HYDROcodone 325 MG/5 MG TAB PO PRN (13:53)
[2017-02-13] MEDS: ENALAPRILAT 2.5 MG/2 ML VIAL IV PUSH PRN (13:54)
[2017-02-13] MEDS: ASPIRIN 325 MG TAB PO SCH (13:56)
--- NOTE | 2017-02-13 14:08 | HHI.PR ---
Subjective Subjective Notes feels well, pain controlled, tolerating PO Objective Vitals/I&O Vital Signs Date Time Temp Pulse Resp B/P (MAP) Pulse Ox O2 Delivery O2 Flow Rate FiO2 02/13/17 12:00 96.3 70 20 202/77 (118) 96 173/76 (108) 02/13/17 08:51 21 02/12/17 19:00 Room Air 02/12/17 17:23 2.00 Labs Laboratory Tests Test 02/12/17 14:45 02/12/17 16:01 02/13/17 04:20 Potassium Level 3.8 4.1 Phosphorus Level 1.0 Magnesium Level 2.5 2.3 White Blood Count 17.2 Red Blood Count 3.46 Hemoglobin 10.4 Hematocrit 31.4 Mean Corpuscular Volume 90.7 Mean Corpuscular Hemoglobin 30.1 Mean Corpuscular Hemoglobin Concent 33.2 Red Cell Distribution Width 14.2 Platelet Count 328 Mean Platelet Volume 8.1 Neutrophils (%) (Auto) 84.7 Lymphocytes (%) (Auto) 7.3 Monocytes (%) (Auto) 7.9 Eosinophils (%) (Auto) 0.0 Basophils (%) (Auto) 0.1 Neutrophils # (Auto) 14.6 Lymphocytes # (Auto) 1.3 Monocytes # (Auto) 1.4 Eosinophils # (Auto) 0.0 Basophils # (Auto) 0.0 CBC Comment DIFF FINAL Differential Comment Blood Urea Nitrogen 17 Creatinine 1.13 Random Glucose 130 Total Protein 5.9 Albumin 2.0 Calcium Level 6.6 Alkaline Phosphatase 78 Aspartate Amino Transf (AST/SGOT) 45 Alanine Aminotransferase (ALT/SGPT) 28 Total Bilirubin 0.2 Sodium Level 140 Chloride Level 112 Carbon Dioxide Level 19.3 Anion Gap 9 Estimat Glomerular Filtration Rate 63 Protein Corrected Calcium 7.2 Date/Time Source Procedure Growth Status 02/11/17 05:19 Blood Peripheral Aerobic Blood Culture - Preliminary NO GROWTH IN 2 DAYS Resulted 02/11/17 05:19 Blood Peripheral Anaerobic Blood Culture - Preliminary NO GROWTH IN 2 DAYS Resulted Abdomen: Non-distended, Post-op tenderness Narrative Exam MARIA LUISA drain clear A/P Assessment and Plan 76yo male s/p lap mera for gangrenous cholecystitis, stable. continue OOB pain controlled tolerating PO continue ABX and MARIA LUISA possibly home next 24-48h if continue to improve home health for MARIA LUISA Ru Barboza MD Feb 13, 2017 14:08
[2017-02-13] MEDS: ENOXAPARIN SODIUM 30 MG/0.3 ML SYRINGE SQ SCH (15:57)
[2017-02-13] MEDS: ATORVASTATIN 40 MG TAB PO SCH (20:24)
[2017-02-14] MEDS: INSULIN ASPART SUPPLEMENTAL SCALE SQ SCH ×6 (02:00→20:48)
[2017-02-14 04:00] VITALS: BP 166/75; PULSE 84; RESP 20; TEMP 97.8; O2SAT 96
[2017-02-14] MEDS: metroNIDAZOLE 250 MG INJ 50 ML IV SCH ×3 (04:45→20:36)
[2017-02-14] MEDS: ENALAPRILAT 2.5 MG/2 ML VIAL IV PUSH PRN ×2 (05:24→15:51)
--- NOTE | 2017-02-14 07:50 | PD.VS.PN ---
Subjective Subjective/Hospital Course POD#2 s/p lap mera c/o abdominal soreness but not related to po intake; joseph reg diet Objective Vitals/I&O Date Time Temp Pulse Resp B/P (MAP) Pulse Ox O2 Delivery O2 Flow Rate FiO2 02/14/17 04:00 97.8 84 20 166/75 (105) 96 02/13/17 23:55 97.0 66 20 158/75 (102) 95 02/13/17 20:19 69 02/13/17 20:00 97.2 76 20 180/83 (115) 96 02/13/17 16:00 97.2 69 18 159/95 (116) 94 02/13/17 12:00 96.3 70 20 202/77 (118) 96 173/76 (108) 02/13/17 09:00 Room Air 2.00 21 02/13/17 08:51 21 02/13/17 08:00 97.3 74 20 166/67 (100) 93 02/14/17 02/14/17 02/14/17 07:00 15:00 23:00 Intake Total 530 ml Output Total 680 ml Balance -150 ml Physical Exam abdomen minimally tender Laboratory Laboratory Tests Test 02/14/17 06:40 Date/Time Source Procedure Growth Status 02/11/17 05:19 Blood Peripheral Aerobic Blood Culture - Preliminary NO GROWTH IN 2 DAYS Resulted 02/11/17 05:19 Blood Peripheral Anaerobic Blood Culture - Preliminary NO GROWTH IN 2 DAYS Resulted Assessment and Plan Plan asymptomatic visceral artery occlusive disease ok to d/c from vascular surgery standpoint will arrange outpatient f/u with mesenteric duplex Zeferino Gomez MD FACS RPVI bread packer [facility] - Heart and Vascular Surgery at [facility] [phone] Zeferino Gomez MD Feb 14, 2017 07:50
[2017-02-14 07:57] LABS: AUTOMATED NEUTROPHIL # 11.6 TH/MM3 (1.8-7.7); BASOPHIL # 0.1 TH/MM3 (0-0.2); BASOPHIL % 0.4 % (0.0-2.0); EOSINOPHIL # 0.4 TH/MM3 (0-0.4); EOSINOPHIL % 2.8 % (0.0-4.0); HEMATOCRIT 28.7 % (39.0-51.0); HEMO FLAGS DIFF FINAL; LYMPH % 11.2 % (9.0-44.0); LYMPHOCYTE # 1.7 TH/MM3 (1.0-4.8); MEAN CELL VOLUME 90.5 FL (80.0-100.0); MEAN CORPUSCULAR HGB CONC 34.2 % (32.0-36.0); NEUT % 77.6 % (16.0-70.0); PLATELET COUNT 308 TH/MM3 (150-450); RED BLOOD COUNT 3.17 MIL/MM3 (4.50-5.90); RED CELL DISTRIBUTION WIDTH 14.8 % (11.6-17.2); WHITE BLOOD COUNT 14.9 TH/MM3 (4.0-11.0)
[2017-02-14 08:00] VITALS: BP 162/75; PULSE 70; RESP 16; TEMP 98; O2SAT 94
[2017-02-14 08:21] LABS: MAGNESIUM 1.9 MG/DL (1.5-2.5)
[2017-02-14] MEDS: CEFEPIME INJ 2,000 MG in SODIUM CHLORIDE 0.9% INJ 100 ML IV SCH ×2 (08:29→20:37)
[2017-02-14] MEDS: CALCIUM CARBONATE 500 MG CHEWABLE TAB CHEW SCH ×2 (08:30→20:39)
[2017-02-14] MEDS: POTASSIUM CHLORIDE 25 MEQ EFFERVESCENT TAB PO SCH ×2 (08:30→20:41)
[2017-02-14] MEDS: MAGNESIUM OXIDE 400 MG TAB PO SCH (08:31)
[2017-02-14] MEDS: DOCUSATE SODIUM 50 MG/SENNA 8.6 MG TAB PO SCH ×2 (08:31→20:39)
[2017-02-14] MEDS: PANTOPRAZOLE SOD 40 MG DELAYED RELEASE TAB PO SCH (08:31)
[2017-02-14] MEDS: METOPROLOL TARTRATE 25 MG TAB PO SCH ×2 (08:31→20:39)
[2017-02-14] MEDS: ASPIRIN 325 MG TAB PO SCH (08:31)
[2017-02-14 08:48] LABS: CALCIUM-PROTEIN CORRECTED 7.3 MG/DL (8.5-10.1)
--- NOTE | 2017-02-14 11:14 | HHI.FF ---
Face to Face Verification Diagnosis: (1) Cholecystitis (2) Hx laparoscopic cholecystectomy Home Health Nursing Order: Nursing assessment with vital signs Instructions: MARIA LUISA drain management I have seen patient Sammy Chicas on 02/14/17. My clinical findings support the need for the requested home health care services because: Pt had sx and has one MARIA LUISA drain in place Limited ability to care for self I certify that my clinical findings support that this patient is homebound because: Pt had sx and has one MARIA LUISA drain in place Post-op weakness Annalise Mohamud MD Feb 14, 2017 11:14
--- NOTE | 2017-02-14 11:23 | HHI.PR ---
Subjective Remarks Pt hoping to go home soon. Pain well controlled. no nausea or vomiting. states he had lots of loose stools this morning. Objective Vitals Vital Signs Date Time Temp Pulse Resp B/P (MAP) Pulse Ox O2 Delivery O2 Flow Rate FiO2 02/14/17 08:00 98.0 70 16 162/75 (104) 94 02/14/17 04:00 97.8 84 20 166/75 (105) 96 02/13/17 23:55 97.0 66 20 158/75 (102) 95 02/13/17 20:19 69 02/13/17 20:00 97.2 76 20 180/83 (115) 96 02/13/17 16:00 97.2 69 18 159/95 (116) 94 02/13/17 12:00 96.3 70 20 202/77 (118) 96 173/76 (108) I/O 02/13/17 02/13/17 02/13/17 02/14/17 02/14/17 02/14/17 07:00 15:00 23:00 07:00 15:00 23:00 Intake Total 1050 ml 1150 ml 530 ml Output Total 650 ml 50 ml 680 ml Balance 400 ml -50 ml 1150 ml -150 ml Intake Oral 1000 ml 480 ml IV Total 1050 ml 150 ml 50 ml Output Urine Total 600 ml 600 ml Drainage Total 50 ml 50 ml 80 ml # Voids 5 2 # Bowel Movements 1 1 Result Diagram: 02/14/17 0640 02/14/17 0640 Imaging Last Impressions Gall Bladder Ultrasound 02/10/17 0000 Signed Impressions: Service Date/Time: Friday, February 10, 2017 17:24 - CONCLUSION: 1. Hepatomegaly without focal lesion. 2. Gallbladder wall thickening and dilation of the common bile duct without demonstrable gallstones. May consider performing hepatobiliary tract scan to evaluate for acalculous cholecystitis. Mickey Carmona MD Chest X-Ray 02/10/17 0000 Signed Impressions: Service Date/Time: Friday, February 10, 2017 14:01 - CONCLUSION: Normal examination. Elkin Doran MD Objective Remarks GENERAL: Alert awake. laying in bed, appears comfortable. EYES: EOMI ENT: Airway patent. NECK: Trachea midline. CARDIOVASCULAR: Regular rate and rhythm without murmurs RESPIRATORY: Clear to auscultation. Breath sounds equal bilaterally. No wheezes GASTROINTESTINAL: Abdomen soft, non tender at this time, no guarding, steri's in place, drain in place w serous drainage NEUROLOGICAL: alert, answers questions appropriately. 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 RESP: - Nasal cannula oxygen. DuoNeb every 6 hours when necessary - Strongly advised to quit smoking CV: - Pt is tolerating PO. HLIV - Lactic acid normal GI/ID: - regular diet. - GB US -shows gallbladder wall thickening and dilatation. s/p diagnostic laparoscopy with Dr. aguilar - Broad-spectrum antibiotics with cefepime and Flagyl - Blood culture neg x 2days. Wbc down to 14.9 - Vascular surgery Dr. 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 Pt can be discharged home from his standpoint. f.u w him in 1 month and will follow long-term for visceral artery occlusive disease - Consider GI consult and EGD/colonoscopy if not improving - Stool for Hemoccult, stool H [id number] : - Monitor renal function closely. Accurate I/O HEME: - Leukocytosis trending down with IV antibiotics ENDO: - Persistent hypokalemia, now resolved. - hypocalcemia and hypophosphatemia: currently being replaced. monitor closely - loose stools, could be from the mag oxide. hold. - ISS PROPH: - Bilateral lower extremity SCDs. Lovenox, Famotidine Discharge Planning when cleared by GS needs correction of Calcium as well prior to d/c Annalise Mohamud MD Feb 14, 2017 11:23
[2017-02-14] MEDS ORDERED: POTASSIUM PHOSPHATE/SODIUM PHOSPHATE 250 MG TAB PO ONE (11:30)
[2017-02-14] MEDS: amLODIPine BESYLATE 5 MG TAB PO SCH (11:37)
[2017-02-14 12:00] VITALS: BP 164/70; PULSE 71; RESP 18; TEMP 96.7; O2SAT 97
[2017-02-14] MEDS ORDERED: CALCIUM CARBONATE 500 MG CHEWABLE TAB CHEW ONE ×2 (12:45→13:00)
[2017-02-14] MEDS ORDERED: SODIUM CHLORID 0.9% 500 ML INJ 250 ML IV SCH (12:45)
[2017-02-14] MEDS ORDERED: CALCIUM GLUCONATE INJ 1 GM in SODIUM CHLORIDE 0.9% INJ 100 ML IV ONE (13:00)
[2017-02-14] MEDS ORDERED: SODIUM PHOSPHATE INJ 15 MMOL in SODIUM CHLORIDE 0.9% INJ 150 ML IV ONE (14:00)
[2017-02-14] MEDS ORDERED: POTASSIUM PHOSPHATE/SODIUM PHOSPHATE 250 MG TAB PO SCH (14:00)
--- NOTE | 2017-02-14 14:36 | HHI.PR ---
cc: Ned Mora MD Subjective Subjective Notes Tolerating diet Slightly distended still, but passing flatus Objective Vitals/I&O Vital Signs Date Time Temp Pulse Resp B/P (MAP) Pulse Ox O2 Delivery O2 Flow Rate FiO2 02/14/17 12:00 96.7 71 18 164/70 (101) 97 02/13/17 09:00 Room Air 2.00 21 Labs Laboratory Tests Test 02/14/17 06:40 White Blood Count 14.9 Red Blood Count 3.17 Hemoglobin 9.8 Hematocrit 28.7 Mean Corpuscular Volume 90.5 Mean Corpuscular Hemoglobin 31.0 Mean Corpuscular Hemoglobin Concent 34.2 Red Cell Distribution Width 14.8 Platelet Count 308 Mean Platelet Volume 7.6 Neutrophils (%) (Auto) 77.6 Lymphocytes (%) (Auto) 11.2 Monocytes (%) (Auto) 8.0 Eosinophils (%) (Auto) 2.8 Basophils (%) (Auto) 0.4 Neutrophils # (Auto) 11.6 Lymphocytes # (Auto) 1.7 Monocytes # (Auto) 1.2 Eosinophils # (Auto) 0.4 Basophils # (Auto) 0.1 CBC Comment DIFF FINAL Differential Comment Blood Urea Nitrogen 13 Creatinine 1.02 Random Glucose 109 Total Protein 5.4 Calcium Level 6.5 Phosphorus Level 0.7 Magnesium Level 1.9 Sodium Level 137 Potassium Level 4.0 Chloride Level 109 Carbon Dioxide Level 18.0 Anion Gap 10 Estimat Glomerular Filtration Rate 71 Protein Corrected Calcium 7.3 Date/Time Source Procedure Growth Status 02/11/17 05:19 Blood Peripheral Aerobic Blood Culture - Preliminary NO GROWTH IN 3 DAYS Resulted 02/11/17 05:19 Blood Peripheral Anaerobic Blood Culture - Preliminary NO GROWTH IN 3 DAYS Resulted Lungs: Clear Abdomen: Non-distended, Non-tender Narrative Exam MARIA LUISA output serosanguinous Steri strips dry Skin without erythema A/P Assessment and Plan POD #2 Lap mera for gangrenous cholecystitis Plan: Continue IV antibiotics today; convert to PO tomorrow. Leave MARIA LUISA in for now Possible discharge home tomorrow with drain/HHC Ned Mora MD Feb 14, 2017 14:36
[2017-02-14] MEDS: ENOXAPARIN SODIUM 30 MG/0.3 ML SYRINGE SQ SCH (15:51)
[2017-02-14 16:00] VITALS: BP 193/81; PULSE 72; RESP 20; TEMP 97.8; O2SAT 97
[2017-02-14 16:17] LABS: BICARBONATE 20.9 MEQ/L (21.0-32.0)
[2017-02-14 16:38] LABS: CALCIUM-PROTEIN CORRECTED 7.3 MG/DL (8.5-10.1)
[2017-02-14 20:00] VITALS: BP 166/74; PULSE 71; RESP 22; TEMP 98.5; O2SAT 96
[2017-02-14] MEDS: ATORVASTATIN 40 MG TAB PO SCH (20:39)
[2017-02-15] VITALS: BP 184/79; PULSE 69; RESP 22; TEMP 97.7; O2SAT 98
[2017-02-15] MEDS: INSULIN ASPART SUPPLEMENTAL SCALE SQ SCH ×3 (02:00→10:23)
[2017-02-15 04:00] VITALS: BP 172/76; PULSE 63; RESP 20; TEMP 97.7; O2SAT 97
[2017-02-15] MEDS: metroNIDAZOLE 250 MG INJ 50 ML IV SCH (04:39)
[2017-02-15] MEDS: ENALAPRILAT 2.5 MG/2 ML VIAL IV PUSH PRN (04:39)
[2017-02-15] MEDS: CALCIUM CARBONATE 500 MG CHEWABLE TAB CHEW SCH (04:49)
[2017-02-15 07:29] LABS: BICARBONATE 21.9 MEQ/L (21.0-32.0); MAGNESIUM 1.7 MG/DL (1.5-2.5); POTASSIUM 3.7 MEQ/L (3.5-5.1)
[2017-02-15 08:00] VITALS: BP 159/69; PULSE 68; RESP 17; TEMP 97.8; O2SAT 95
[2017-02-15 08:08] LABS: CALCIUM-PROTEIN CORRECTED 7.2 MG/DL (8.5-10.1)
[2017-02-15] MEDS: CEFEPIME INJ 2,000 MG in SODIUM CHLORIDE 0.9% INJ 100 ML IV SCH (08:33)
[2017-02-15] MEDS: PANTOPRAZOLE SOD 40 MG DELAYED RELEASE TAB PO SCH (08:33)
[2017-02-15] MEDS: DOCUSATE SODIUM 50 MG/SENNA 8.6 MG TAB PO SCH (08:33)
[2017-02-15] MEDS: POTASSIUM CHLORIDE 25 MEQ EFFERVESCENT TAB PO SCH (08:34)
[2017-02-15] MEDS: amLODIPine BESYLATE 5 MG TAB PO SCH (08:34)
[2017-02-15] MEDS: ASPIRIN 325 MG TAB PO SCH (08:34)
[2017-02-15] MEDS: METOPROLOL TARTRATE 25 MG TAB PO SCH (08:34)
[2017-02-15] MEDS ORDERED: METR-1 PO (08:50)
[2017-02-15] MEDS ORDERED: HYDR-3516 PO (08:50)
[2017-02-15] MEDS ORDERED: LEVA750T9 PO (08:50)
--- NOTE | 2017-02-15 08:52 | HHI.PR ---
Subjective Subjective Notes Ready to go home today Feels okay to take care of drain at home without HHC RN Kimberley at bedside Objective Vitals/I&O Vital Signs Date Time Temp Pulse Resp B/P (MAP) Pulse Ox O2 Delivery O2 Flow Rate FiO2 02/15/17 04:00 97.7 63 20 172/76 (108) 97 02/13/17 09:00 Room Air 2.00 21 Labs Laboratory Tests Test 02/14/17 15:28 02/15/17 06:09 Blood Urea Nitrogen 13 10 Creatinine 1.06 0.99 Random Glucose 166 128 Total Protein 5.6 5.8 Calcium Level 6.6 6.6 Sodium Level 137 139 Potassium Level 4.0 3.7 Chloride Level 110 109 Carbon Dioxide Level 20.9 21.9 Anion Gap 6 8 Estimat Glomerular Filtration Rate 68 73 Protein Corrected Calcium 7.3 7.2 Phosphorus Level 1.0 Magnesium Level 1.7 Date/Time Source Procedure Growth Status 02/11/17 05:19 Blood Peripheral Aerobic Blood Culture - Preliminary NO GROWTH IN 3 DAYS Resulted 02/11/17 05:19 Blood Peripheral Anaerobic Blood Culture - Preliminary NO GROWTH IN 3 DAYS Resulted Cardiovascular: Regular Lungs: Clear Abdomen: Non-distended, Non-tender, Other (MARIA LUISA with serous output; lap sites c/d /i ) Extremities: No edema A/P Assessment and Plan 76 year old male POD3 lap mera; gangrenous -Switch to PO antibiotics -Pain controlled -Regular diet -Okay to DC from GS standpoint -Rx for pain medications and antibiotics on chart -Follow up with Dr. Viveros on Vivienne Sanches Feb 15, 2017 08:52
[2017-02-15] MEDS ORDERED: LEVOFLOXACIN 750 MG TAB PO SCH (09:00)
[2017-02-15] MEDS ORDERED: ASA325 PO (11:17)
[2017-02-15] MEDS ORDERED: ATOR40TA16 PO (11:17)
[2017-02-15] MEDS ORDERED: METO25TA3 PO (11:17)
[2017-02-15] MEDS ORDERED: PANT40TA3 PO (11:17)
[2017-02-15] MEDS ORDERED: KPHOS250 PO (11:17)
[2017-02-15] MEDS ORDERED: Calcium Carbonate Chew CHEW (11:17)
[2017-02-15] MEDS ORDERED: AMLO10 PO (11:18)
--- NOTE | 2017-02-15 11:32 | HHI.PR ---
Objective Vitals Vital Signs Date Time Temp Pulse Resp B/P (MAP) Pulse Ox O2 Delivery O2 Flow Rate FiO2 02/15/17 08:00 97.8 68 17 159/69 (99) 95 02/15/17 04:00 97.7 63 20 172/76 (108) 97 02/15/17 00:00 97.7 69 22 184/79 (114) 98 02/14/17 20:00 98.5 71 22 166/74 (104) 96 02/14/17 16:00 97.8 72 20 193/81 (118) 97 02/14/17 12:00 96.7 71 18 164/70 (101) 97 I/O 02/14/17 02/14/17 02/14/17 02/15/17 02/15/17 02/15/17 07:00 15:00 23:00 07:00 15:00 23:00 Intake Total 530 ml 260 ml 1590 ml 530 ml 100 ml Output Total 680 ml 40 ml 30 ml 460 ml Balance -150 ml 220 ml 1560 ml 70 ml 100 ml Intake Oral 480 ml 1440 ml 480 ml IV Total 50 ml 260 ml 150 ml 50 ml 100 ml Output Urine Total 600 ml 400 ml Drainage Total 80 ml 40 ml 30 ml 60 ml # Voids 2 5 2 # Bowel Movements 1 2 0 Result Diagram: 02/14/17 0640 02/15/17 0609 Sonia Flores MD Feb 15, 2017 11:32
[2017-02-15 12:00] VITALS: BP 159/73; PULSE 66; RESP 17; TEMP 97; O2SAT 96
[2017-02-15] MEDS ORDERED: metroNIDAZOLE 500 MG TAB PO SCH (14:00)
--- NOTE | 2017-02-16 10:23 | HHI.DS ---
Discharge Summary Admission Date Feb 10, 2017 at 14:08 Discharge Date: Feb 15, 2017 Admitting Diagnosis (1) Cholecystitis ICD Code: K81.9 - Cholecystitis, unspecified (2) Hypomagnesemia ICD Code: E83.42 - Hypomagnesemia (3) Sepsis ICD Code: A41.9 - Sepsis, unspecified organism (4) Gangrenous cholecystitis ICD Code: K81.0 - Acute cholecystitis (5) Mesenteric artery stenosis ICD Code: K55.1 - Chronic vascular disorders of intestine Procedures Laparoscopic cholecystectomy Brief History - From Admission 76 yo male with 2 weeks of abdominal pain, admitted to outside hospital and worked up for cholecystitis. By report, had gallbladder sludge on US and + Hoffman's sign but negative HIDA. CT showed mesenteric stenosis and transferred here. The patient notes that he started with abdominal pain after a shot for metastatic prostate CA on 01/25. + anorexia. No diarrhea. Pain has been persistent. CBC/BMP: 02/14/17 0640 02/15/17 0609 Significant Findings Laboratory Tests Test 02/14/17 06:40 02/14/17 15:28 02/15/17 06:09 White Blood Count 14.9 TH/MM3 (4.0-11.0) Red Blood Count 3.17 MIL/MM3 (4.50-5.90) Hemoglobin 9.8 GM/DL (13.0-17.0) Hematocrit 28.7 % (39.0-51.0) Neutrophils (%) (Auto) 77.6 % (16.0-70.0) Neutrophils # (Auto) 11.6 TH/MM3 (1.8-7.7) Monocytes # (Auto) 1.2 TH/MM3 (0-0.9) Random Glucose 109 MG/DL (74-106) 166 MG/DL (74-106) 128 MG/DL (74-106) Total Protein 5.4 GM/DL (6.4-8.2) 5.6 GM/DL (6.4-8.2) 5.8 GM/DL (6.4-8.2) Calcium Level 6.5 MG/DL (8.5-10.1) 6.6 MG/DL (8.5-10.1) 6.6 MG/DL (8.5-10.1) Phosphorus Level 0.7 MG/DL (2.5-4.9) 1.0 MG/DL (2.5-4.9) Chloride Level 109 MEQ/L (98-107) 110 MEQ/L (98-107) 109 MEQ/L (98-107) Carbon Dioxide Level 18.0 MEQ/L (21.0-32.0) 20.9 MEQ/L (21.0-32.0) Estimat Glomerular Filtration Rate 71 ML/MIN (>89) 68 ML/MIN (>89) 73 ML/MIN (>89) Protein Corrected Calcium 7.3 MG/DL (8.5-10.1) 7.3 MG/DL (8.5-10.1) 7.2 MG/DL (8.5-10.1) PE at Discharge GENERAL: Alert awake. laying in bed, appears comfortable. EYES: EOMI ENT: Airway patent. NECK: Trachea midline. CARDIOVASCULAR: Regular rate and rhythm without murmurs RESPIRATORY: Clear to auscultation. Breath sounds equal bilaterally. No wheezes GASTROINTESTINAL: Abdomen soft, non tender at this time, no guarding, steri's in place, drain in place w serous drainage NEUROLOGICAL: alert, answers questions appropriately. Hospital Course Patient admitted initially to MICU for sepsis with cholecystitis mesenteric artery stenosis probably chronic, she has a history of COPD diabetes mellitus dyslipidemia metastatic prostate cancer, GS was consulted patient started on broad-spectrum antibiotic blood culture, eventually she had laparoscopic cholecystectomy, patient improved and cleared by GS to be discharged home [id number] encounter performed with the patient on discharge day, as well as physical exam, summary of hospitalization course and postdischarge plan has been D/W the patient. D/W nurse D/W nurse case manager. Discharge medications reviewed and printed and signed, post discharge follow up visit with PCP and other specialist as well as Brief hospital course and discharge summary has been placed. Pt Condition on Discharge: Stable Discharge Disposition: Disch w/ Home Health Serv Discharge Time: > 30 minutes Discharge Instructions DIET: Follow Instructions for: Heart Healthy Diet, Diabetic Diet Activities you can perform: Regular-No Restrictions Follow up Referrals: PCP Follow-up - 1 Week PCP Follow-up Surgical - 11/30/17 with Bart Viveros MD Surgical Vascular Surgery @ Vascular Surgery with Zeferino Gomez MD Vascular Surgery New Medications: Amlodipine (Norvasc) 10 Mg Tab 10 MG PO DAILY for Blood Pressure Management for 30 Days, #30 TAB 0 Refills Potassium Phosphate-Sodium Phosphate (K-Phos Neutral) 155-852-130 Mg Tab 500 MG PO PCHS for Electrolyte Replacement for 3 Days, #12 TAB 0 Refills Aspirin (Px Aspirin) 325 Mg Tab 325 MG PO DAILY for Blood Clot Prevention for 30 Days, #30 TAB Atorvastatin (Atorvastatin) 40 Mg Tab 40 MG PO HS for Cholesterol Management for 30 Days, #30 TAB Hydrocodone/Acetaminophen (Hydrocodone-Acetamin 5-325 mg) 5 Mg-325 Mg Tablet 1 TAB PO Q4H PRN for pain, #30 TAB Levofloxacin (Levaquin) 750 Mg Tablet 750 MG PO DAILY for Infection for 7 Days, #7 TAB Metoprolol Tartrate (Metoprolol Tartrate) 25 Mg Tab 12.5 MG PO BID for Blood Pressure Management for 30 Days, #30 TAB Metronidazole (Flagyl) 500 Mg Tab 500 MG PO Q8HR for Infection for 7 Days, TAB Pantoprazole (Pantoprazole) 40 Mg Tab 40 MG PO DAILY for GERD for 30 Days, #30 TAB [Calcium Carbonate Chew] () 500 MG CHEW 500 MG CHEW Q8H for Low Calcium for 5 Days, #15 Continued Medications: Tamsulosin (Tamsulosin) 0.4 Mg Cap 0.4 MG PO HS for Manage Prostate Problems, #30 CAP 0 Refills Discontinued Medications: Atorvastatin (Atorvastatin) 10 Mg Tab 10 MG PO HS for Cholesterol Management, #30 TAB 0 Refills Diltiazem ER 24 HR (Diltiazem ER 24 HR) 360 Mg Faizan 360 MG PO DAILY, #30 TAB 0 Refills Glipizide (Glipizide) 5 Mg Tab 5 MG PO BIDAC for Blood Sugar Management, #60 TAB 0 Refills Take 30 minutes before a meal Lisinopril-Hctz (Lisinopril-Hctz) 20-12.5 Mg Tab 1 TAB PO DAILY for Blood Pressure Management, #30 TAB 0 Refills Sonia Flores MD Feb 16, 2017 10:23
== END 2017-02-15 13:19 | disposition home or self-care (01) | DRG 854 ==
LOC: N03A 14:08 → N07A 02-12 20:44
PROVIDERS: ADMIT Hospitalist; ATTEND Hospitalist
PROC: 0FT44ZZ Resection of Gallbladder, Percutaneous Endoscopic Approach (ICD-10-PCS; principal; 2017-02-12 07:53)
DX: A41.9 Sepsis, unspecified organism (principal); K81.0 Acute cholecystitis; K55.1 Chronic vascular disorders of intestine; C79.9 Secondary malignant neoplasm of unspecified site; C61 Malignant neoplasm of prostate; E83.42 Hypomagnesemia; E83.39 Other disorders of phosphorus metabolism; E83.51 Hypocalcemia; J44.9 Chronic obstructive pulmonary disease, unspecified; R63.0 Anorexia; I10 Essential (primary) hypertension; E11.9 Type 2 diabetes mellitus without complications; K59.00 Constipation, unspecified; E87.6 Hypokalemia; E78.5 Hyperlipidemia, unspecified; Z23 Encounter for immunization; F17.210 Nicotine dependence, cigarettes, uncomplicated; Z79.01 Long term (current) use of anticoagulants; Z92.21 Personal history of antineoplastic chemotherapy; Z92.3 Personal history of irradiation
CPT/HCPCS: 71010; 76705; 76937; 80048; 80053; 80076; 82150; 82533; 82948; 83605; 83735; 84100; 84132; 84155; 85025; 85027; 85610; 85730; 86850; 86900; 86901; 87040; 87338; 87641; 88304; 90686; 93005; J0360; J0610; J0692; J1100; J1650; J1815; J2270; J2405; J2710; J3010; J3475; J3480; J7030; J7040; Q2038

== ENCOUNTER 2017-04-18 23:46 | Inpatient (IN) | payer MEDICARE, OTHER ==
[~2017-04-18] VITALS: Ht 172.7 cm; Wt 69.0 kg
[~2017-04-18 23:46] MED LIST: AMLO10 PO; ASA325 PO; ATOR40TA16 PO; Calcium Carbonate Chew CHEW; HYDR-3516 PO; KPHOS250 PO; LEVA750T9 PO; METO25TA3 PO; METR-1 PO; PANT40TA3 PO; TAMS0.4C4 PO
[2017-04-18 23:49] VITALS: BP 168/67; PULSE 62; RESP 20; TEMP 97.8; O2SAT 92
[2017-04-19] VITALS (11 sets, daily range): BP systolic 154–185; BP diastolic 68–79; PULSE 60–74; RESP 17–18; TEMP 97.7–98.6; O2SAT 86–95
[2017-04-19] MEDS ORDERED: OXYC-395 PO (00:10)
[2017-04-19] MEDS ORDERED: INSU1INJ18 SQ (00:10)
[2017-04-19] MEDS ORDERED: LISI-515 PO (00:10)
[2017-04-19] MEDS ORDERED: DEGA80IN SQ (00:10)
[2017-04-19] MEDS ORDERED: INSU100I SQ (00:10)
[2017-04-19] MEDS ORDERED: GLIP5TAB8 PO (00:10)
[2017-04-19] MEDS ORDERED: DILT1CAP9 (00:10)
[2017-04-19] MEDS ORDERED: LOPE2CAP PO (00:11)
[2017-04-19] MEDS ORDERED: PROC10TA PO (00:11)
--- NOTE | 2017-04-19 00:28 | PD ---
Physical Exam Date Seen by Provider: Apr 19, 2017 Time Seen by Provider: 12:20 Narrative Patient seen in the ER as a courtesy to Dr. Gomez. He apparently had abdominal pain, was seen in the ER for a [facility], and CAT scan showed that he had a iliac arterial stenosis, there is concern of underlying mesenteric ischemia, and patient was sent in to be evaluated by Dr. Gomez as a transfer. I have discussed the case with Dr. Gomez who would like the patient to be medically admitted. He did not have any further instructions at this time. He states he will see the patient in a few hours. Dr. Chu agrees to admit the patient. GENERAL: Well-nourished, well-developed elderly white male patient in mild distress. SKIN: Focused skin assessment warm/dry. HEAD: Normocephalic. EYES: No scleral icterus. No injection or drainage. NECK: Supple, trachea midline. No JVD or lymphadenopathy. CARDIOVASCULAR: Regular rate and rhythm without murmurs, gallops, or rubs. RESPIRATORY: Breath sounds equal bilaterally. No accessory muscle use. GASTROINTESTINAL: Abdomen soft, mild upper abdominal tenderness without guarding or rebound, nondistended. MUSCULOSKELETAL: No cyanosis, or edema. BACK: Nontender without obvious deformity. No CVA tenderness. Data Data Last Documented VS Vital Signs Date Time Temp Pulse Resp B/P (MAP) Pulse Ox O2 Delivery O2 Flow Rate FiO2 04/18/17 23:58 20 04/18/17 23:49 97.8 62 168/67 (100) 92 Orders Orders Admit Order (Ed Use Only) (04/19/17 00:08) [facility] Medical Record Reviewed: Yes Supervised Visit with SEAN: No Diagnosis Primary Impression: Mesenteric artery stenosis Admitting Information Admitting Physician Requests: Admit Donal Haddad MD Apr 19, 2017 00:28
[2017-04-19] MEDS ORDERED: LACTULOSE SYRUP 20 GM/30 ML CUP PO PRN (01:00)
[2017-04-19] MEDS ORDERED: GLUCAGON 1 MG/ML VIAL OTHER PRN (01:00)
[2017-04-19] MEDS ORDERED: DEXTROSE 50% IN WATER 50 ML VIAL(D50) IV PUSH PRN (01:00)
[2017-04-19] MEDS ORDERED: SENNOSIDES 8.6 MG TAB PO PRN (01:00)
[2017-04-19] MEDS ORDERED: ACETAMINOPHEN 325 MG TAB PO PRN (01:00)
[2017-04-19] MEDS ORDERED: BISACODYL 10 MG SUPP RECTAL PRN (01:00)
[2017-04-19] MEDS ORDERED: SODIUM CHLOR 0.9% 1000 ML INJ 1,000 ML IV SCH (01:00)
[2017-04-19] MEDS ORDERED: ONDANSETRON HCL 4 MG/2 ML VIAL IVP PRN (01:00)
[2017-04-19] MEDS ORDERED: MORPHINE SULFATE 2 MG/ML INJ IV PUSH PRN (01:00)
[2017-04-19] MEDS ORDERED: SODIUM CHLORIDE 0.9% FLUSH 10 ML FLUSH IV FLUSH PRN (01:00)
--- NOTE | 2017-04-19 03:43 | HHI.HP ---
HPI Service [facility] Primary Care Physician Swapnil Johnson M.D. Admission Diagnosis stenosis of the proximal iliac artery Diagnoses: (1) Mesenteric ischemia Diagnosis: Principal (2) Abdominal pain Diagnosis: Principal (3) HTN (hypertension) Diagnosis: Principal (4) DM (diabetes mellitus) Diagnosis: Principal (5) Tobacco abuse Diagnosis: Principal Travel History International Travel<30 Days: No Contact w/Intl Traveler <30 Da: No Traveled to Known Affected Are: No History of Present Illness This is a 76-year-old male with a PMH of HTN, COPD, DM, Prostate CA, Tobacco Abuse and Mesenteric Artery Stenosis who was transferred from [facility] for evaluation by Dr. Gomez for mesenteric ischemia. Previous admit 02/10- for Sepsis w/ Gangrenous Cholecystitis, found to have mesenteric artery stenosis and underwent Lap Magda by Dr. Viveros on 02/12/17. Per patient he's had intermittent episodes of abdominal pain/cramping for a few weeks. States pain is dull, intermittent, 8/10, associated w/ meals, non-radiating. Yesterday was having lunch and developed severe abdominal pain at which time he went to [facility]. CT Abd/Pelvis from w/ 80% calcified stenosis of proximal celiac access and 50-60% calcified stenosis of proximal SMA. Dr. Gomez consulted and accepted pt in transfer. Review of Systems Except as stated in HPI: all other systems reviewed are Neg ROS: 14 point review of systems otherwise negative. Past Family Social History Past Medical History PMH: HTN, COPD, DM, Prostate CA, Tobacco Abuse and Mesenteric Artery Stenosis Past Surgical History PAST SURGICAL HISTORY: Cholecystectomy, Shoulder Surgery Allergies: Coded Allergies: No Known Drug Allergies (Verified Allergy, Unknown, 04/18/17) Family History PAST FAMILY HISTORY: Reviewed. No h/o DM or CAD Social History PAST SOCIAL HISTORY: Positive for tobacco. Negative for alcohol or drugs. Physical Exam Vital Signs Vital Signs Date Time Temp Pulse Resp B/P (MAP) Pulse Ox O2 Delivery O2 Flow Rate FiO2 04/19/17 02:50 97.7 60 18 166/74 (104) 86 04/19/17 02:11 04/19/17 02:01 61 17 157/68 (97) 94 Nasal Cannula 2.00 04/18/17 23:58 20 04/18/17 23:49 97.8 62 20 168/67 (100) 92 Physical Exam PE: GENERAL: Pleasant elderly white male in no acute distress. HEENT: PERRLA, EOMI. No scleral icterus or conjunctival pallor. No lid lag or facial droop. CARDIOVASCULAR: Regular rate and rhythm. No obvious murmurs to auscultation. No chest tenderness to palpation. RESPIRATORY: No obvious rhonchi or wheezing. Clear to auscultation. Breath sounds equal bilaterally. GASTROINTESTINAL: Abdomen soft, mild generalized tenderness to palpation, nondistended. BS normal. MUSCULOSKELETAL: Extremities without clubbing, cyanosis, or edema. No obvious deformities. NEUROLOGICAL: Awake, alert and oriented x4. No focal neurologic deficits. Moving both upper and lower extremities spontaneously. Caprini VTE Risk Assessment Caprini VTE Risk Assessment: No/Low Risk (score <= 1) Caprini Risk Assessment Model Point Value = 1 Point Value = 2 Point Value = 3 Point Value = 5 Age 41-60 Minor surgery BMI > 25 kg/m2 Swollen legs Varicose veins or History of unexplained or recurrent spontaneous Oral contraceptives or hormone replacement Sepsis (< 1 month) Serious lung disease, including pneumonia (< 1 month) Abnormal pulmonary function Acute myocardial infarction Congestive heart failure (< 1 month) History of inflammatory bowel disease Medical patient at bed rest Age 61-74 Arthroscopic surgery Major open surgery (> 45 min) Laparoscopic surgery (> 45 min) Malignancy Confined to bed (> 72 hours) Immobilizing plaster cast Central venous access Age >= 75 History of VTE Family history of VTE Factor V Leiden Prothrombin [id number] Lupus anticoagulant Anticardiolipin antibodies Elevated serum homocysteine Heparin-induced thrombocytopenia Other congenital or acquired thrombophilia Stroke (< 1 month) Elective arthroplasty Hip, pelvis, or leg fracture Acute spinal cord injury (< 1 month) Prophylaxis Regimen Total Risk Factor Score Risk Level Prophylaxis Regimen 0-1 Low Early ambulation 2 Moderate Order ONE of the following: *Sequential Compression Device (SCD) *Heparin 5000 units SQ BID 3-4 Higher Order ONE of the following medications: *Heparin 5000 units SQ TID *Enoxaparin/Lovenox 40 mg SQ daily (WT < 150 kg, CrCl > 30 mL/min) *Enoxaparin/Lovenox 30 mg SQ daily (WT < 150 kg, CrCl > 10-29 mL/min) *Enoxaparin/Lovenox 30 mg SQ BID (WT < 150 kg, CrCl > 30 mL/min) AND/OR *Sequential Compression Device (SCD) 5 or more Highest Order ONE of the following medications: *Heparin 5000 units SQ TID (Preferred with Epidurals) *Enoxaparin/Lovenox 40 mg SQ daily (WT < 150 kg, CrCl > 30 mL/min) *Enoxaparin/Lovenox 30 mg SQ daily (WT < 150 kg, CrCl > 10-29 mL/min) *Enoxaparin/Lovenox 30 mg SQ BID (WT < 150 kg, CrCl > 30 mL/min) AND *Sequential Compression Device (SCD) Assessment and Plan Problem List: (1) Mesenteric ischemia ICD Code: K55.9 - Vascular disorder of intestine, unspecified (2) Abdominal pain ICD Code: R10.9 - Unspecified abdominal pain (3) HTN (hypertension) ICD Code: I10 - Essential (primary) hypertension (4) Tobacco abuse ICD Code: Z72.0 - Tobacco use (5) DM (diabetes mellitus) ICD Code: E11.9 - Type 2 diabetes mellitus without complications Assessment and Plan A/P: 1. Mesenteric Ischemia: h/o mesenteric artery stenosis w/ progressive abdominal pain following meals, transferred from [facility] for eval w/ Dr. Gomez. CT Abd/Pelvis from w/ 80% calcified stenosis of proximal celiac axis and 50-60% calcified stenosis of proximal SMA, records reviewed by me. Consult for Dr. Gomez placed, will eval. IVF for hydration, anticoagulation per vascular. Resume Statin, Metoprolol. NPO for likely intervention. 2. Abdominal Pain: secondary to above, analgesics/antiemetics as needed. 3. HTN: Resume home medications, monitor BP. 4. DM: Sliding scale w/ Accu-Cheks, hold Insulin as pt NPO 5. Tobacco Abuse: Pt counselled. Ativan prn. No NicoDerm to avoid vasoconstriction. 6. DVT Prophylaxis: Anticoagulation post intervention. 7. Social work for DC planning as needed. 8. Labs/imaging/records [facility] and from previous admissions reviewed by me. Physician Certification 2 Midnight Certification Type: Admission for Inpatient Services Order for Inpatient Services The services are ordered in accordance with Medicare regulations or non- Medicare payer requirements, as applicable. In the case of services not specified as inpatient-only, they are appropriately provided as inpatient services in accordance with the 2-midnight benchmark. Estimated LOS (days): 2 days is the estimated time the patient will need to remain in the hospital, assuming treatment plan goals are met and no additional complications. Post-Hospital Plan: Not yet determined Marie Chu MD Apr 19, 2017 03:43
--- NOTE | 2017-04-19 05:54 | PD.VS.CON ---
History of Present Illness Chief Complaint: Abdominal pain Consult Requested by: ED History of Present Illness 76 yo male with known visceral artery occlusive disease. He was adm in Jan and found to have cholecystitis and underwent lap mera with resolution of abdominal pain. Was in usual state of health until Wed (3d ago) when he began having post-prandial abdominal pain and that has been going on every time he eats. He has longstanding diarrhea and constipation that pre-dates all the abdominal complaints. He feels ok at present and is resting comfortably. Past/Family/Social History Past Medical History HTN XOL GSV L shoulder Prostate CA - getting injections Past Surgical History lap mera in Jan Social History former smoker Family History NC Home Medications Active Scripts Amlodipine (Norvasc) 10 Mg Tab, 10 MG PO DAILY for Blood Pressure Management for 30 Days, #30 TAB 0 Refills Prov:Astrid Ramsey 02/15/17 [Calcium Carbonate Chew] 500 MG CHEW No Conflict Check, 500 MG CHEW Q8H for Low Calcium for 5 Days, #15 Prov:Astrid Ramsey 02/15/17 Atorvastatin (Atorvastatin) 40 Mg Tab, 40 MG PO HS for Cholesterol Management for 30 Days, #30 TAB Prov:Astrid Ramsey 02/15/17 Metoprolol Tartrate (Metoprolol Tartrate) 25 Mg Tab, 12.5 MG PO BID for Blood Pressure Management for 30 Days, #30 TAB Prov:Astrid Ramsey 02/15/17 Reported Medications Loperamide (Loperamide) 2 Mg Cap, 2 MG PO DIRECTED Y for DIARRHEA, CAP 0 Refills One capsule after each loose stool. Not to exceed 8 capsules per day. 04/19/17 Prochlorperazine Maleate (Prochlorperazine Maleate) 10 Mg Tab, 10 MG PO Q6H Y for NAUSEA OR VOMITING, TAB 0 Refills 04/19/17 Insulin Glargine (Basaglar Kwikpen) 100 Unit/Ml Pen, 6 UNITS SQ AC BREAKFAST for Blood Sugar Management, #5 PEN 0 Refills 04/19/17 Insulin Glargine,Hum.rec.anlog (Basaglar Kwikpen U-100) 100 Unit/Ml (3 Ml) Insuln.pen, 10 SQ HS 04/19/17 Oxycodone (Oxycodone) 10 Mg Tab, 10 MG PO Q8H Y for PAIN, TAB 0 Refills 04/19/17 Degarelix Inj (Firmagon Inj) 80 Mg Inj, 80 MG SQ Q28D for Chemotherapy Management, #1 VIAL 0 Refills 04/19/17 Diltiazem HCl Extended Release (Diltiazem HCl) 360 Mg Cap 04/19/17 Glipizide (Glipizide) 5 Mg Tab, 5 MG PO BIDAC for Blood Sugar Management, #60 TAB 0 Refills Take 30 minutes before a meal 04/19/17 Lisinopril (Lisinopril) 20 Mg Tab, 20 MG PO DAILY, #30 TAB 0 Refills 04/19/17 Tamsulosin (Tamsulosin) 0.4 Mg Cap, 0.4 MG PO HS for Manage Prostate Problems, # 30 CAP 0 Refills 02/10/17 Discontinued Scripts Potassium Phosphate-Sodium Phosphate (K-Phos Neutral) 155-852-130 Mg Tab, 500 MG PO PCHS for Electrolyte Replacement for 3 Days, #12 TAB 0 Refills Prov:Astrid Ramsey 02/15/17 Pantoprazole (Pantoprazole) 40 Mg Tab, 40 MG PO DAILY for GERD for 30 Days, #30 TAB Prov:Astrid Ramsey 02/15/17 Aspirin (Px Aspirin) 325 Mg Tab, 325 MG PO DAILY for Blood Clot Prevention for 30 Days, #30 TAB Prov:Astrid Ramsey 02/15/17 Hydrocodone/Acetaminophen (Hydrocodone-Acetamin 5-325 mg) 5 Mg-325 Mg Tablet, 1 TAB PO Q4H Y for pain, #30 TAB Prov:Vivienne Sanches 02/15/17 Metronidazole (Flagyl) 500 Mg Tab, 500 MG PO Q8HR for Infection for 7 Days, TAB Prov:Vivienne Sanches 02/15/17 Levofloxacin (Levaquin) 750 Mg Tablet, 750 MG PO DAILY for Infection for 7 Days , #7 TAB Prov:Vivienne Sanches 02/15/17 Coded Allergies: No Known Drug Allergies (Verified Allergy, Unknown, 04/18/17) Review of Systems Constitutional: DENIES: Fever, Weight loss Cardiovascular: DENIES: Chest pain Gastrointestinal: COMPLAINS OF: Abdominal pain, Constipation, Diarrhea Physical Exam Vitals/I&O Date Time Temp Pulse Resp B/P (MAP) Pulse Ox O2 Delivery O2 Flow Rate FiO2 04/19/17 03:47 62 04/19/17 02:50 97.7 60 18 166/74 (104) 86 04/19/17 02:11 04/19/17 02:01 61 17 157/68 (97) 94 Nasal Cannula 2.00 04/18/17 23:58 20 04/18/17 23:49 97.8 62 20 168/67 (100) 92 Neuro: alert, oriented, no distress HEENT: NC/AT; anicteric sclera Neck: no JVD; trachea midline Heart: reg rate, no M Lungs: clear B Abdomen: soft and no TTP, no rebound healed lap mera incisions Vascular: palpable UE pulses Assessment and Plan Plan Abdominal pain that may be related to mesenteric ischemia, clearly no peritonitis at present. 1. Ok to have clear liquids 2. I will review CT from OSH 3. Likely mesenteric angiography and stent placement this admission Zeferino Gomez MD FACS RPV[employer] stained glass artist [facility] - Heart and Vascular Surgery at [facility] [phone] Zeferino Gomez MD Apr 19, 2017 05:54
[2017-04-19] MEDS: INSULIN ASPART SUPPLEMENTAL SCALE SQ SCH ×4 (08:00→21:00)
[2017-04-19] MEDS: SODIUM CHLORIDE 0.9% FLUSH 10 ML FLUSH IV FLUSH SCH ×2 (08:37→21:43)
[2017-04-19] MEDS: DOCUSATE SODIUM 50 MG/SENNA 8.6 MG TAB PO SCH ×2 (08:38→21:00)
[2017-04-19] MEDS: METOPROLOL TARTRATE 25 MG TAB PO SCH ×2 (08:38→21:42)
[2017-04-19 09:48] LABS: AUTOMATED NEUTROPHIL # 14.1 TH/MM3 (1.8-7.7); BASOPHIL % 0.3 % (0.0-2.0); EOSINOPHIL # 0.1 TH/MM3 (0-0.4); EOSINOPHIL % 0.8 % (0.0-4.0); HEMATOCRIT 32.3 % (39.0-51.0); LYMPHOCYTE # 1.9 TH/MM3 (1.0-4.8); MEAN CELL VOLUME 85.9 FL (80.0-100.0); MEAN CORPUSCULAR HEMOGLOBIN 29.2 PG (27.0-34.0); MEAN PLATELET VOLUME 8.3 FL (7.0-11.0); MONO % 8.6 % (0.0-8.0); MONOCYTE # 1.5 TH/MM3 (0-0.9); NEUT % 79.3 % (16.0-70.0); PLATELET COUNT 327 TH/MM3 (150-450); RED BLOOD COUNT 3.76 MIL/MM3 (4.50-5.90); RED CELL DISTRIBUTION WIDTH 14.8 % (11.6-17.2); WHITE BLOOD COUNT 17.7 TH/MM3 (4.0-11.0)
[2017-04-19 09:52] LABS: PROTHROMBIN TIME - PATIENT 9.8 SEC (9.8-11.6)
[2017-04-19 10:41] LABS: ALBUMIN 2.9 GM/DL (3.4-5.0); ALKALINE PHOSPHATASE 69 U/L (45-117); ALT (GPT) 13 U/L (12-78); AST (GOT) 12 U/L (15-37); BICARBONATE 26.9 MEQ/L (21.0-32.0); BLOOD UREA NITROGEN 7 MG/DL (7-18); CALCIUM 7.7 MG/DL (8.5-10.1); CHLORIDE 102 MEQ/L (98-107); CREATININE 0.95 MG/DL (0.60-1.30); GLOMERULAR FILTRATION RATE 77 ML/MIN (>89); GLUCOSE,RANDOM 134 MG/DL (74-106); SODIUM (NA) 137 MEQ/L (136-145); TOTAL BILIRUBIN ADULT 0.3 MG/DL (0.2-1.0); TOTAL PROTEIN 6.9 GM/DL (6.4-8.2)
[2017-04-19] MEDS: POTASSIUM CHLOR 10 MEQ PREMIX 100 ML IV SCH ×6 (13:20→18:00)
[2017-04-19] MEDS ORDERED: SODIUM CHLORIDE 23.4% INJ 38.5 MEQ in WATER STERILE FOR INJ 1,000 ML IV SCH (13:45)
[2017-04-19 17:17] LABS: BICARBONATE 25.8 MEQ/L (21.0-32.0); CALCIUM 7.5 MG/DL (8.5-10.1); CREATININE 0.96 MG/DL (0.60-1.30)
[2017-04-19] MEDS ORDERED: POTASSIUM CHLORIDE 20 MEQ CONTROLLED RELEASE TAB PO ONE (19:00)
[2017-04-19] MEDS: ATORVASTATIN 40 MG TAB PO SCH (21:42)
[2017-04-19] MEDS: TAMSULOSIN HCL 0.4 MG CAP PO SCH (21:42)
[2017-04-19] MEDS: MAGNESIUM HYDROXIDE SUSP 30 ML CUP PO PRN (21:43)
[2017-04-20] VITALS (10 sets, daily range): BP systolic 133–161; BP diastolic 61–71; PULSE 62–74; RESP 16–18; TEMP 97.7–98.6; O2SAT 95–97
[2017-04-20] MEDS: METOPROLOL TARTRATE 25 MG TAB PO SCH ×2 (08:01→20:30)
[2017-04-20] MEDS: SODIUM CHLORIDE 0.9% FLUSH 10 ML FLUSH IV FLUSH SCH ×2 (08:01→20:31)
[2017-04-20] MEDS: DOCUSATE SODIUM 50 MG/SENNA 8.6 MG TAB PO SCH ×2 (08:01→20:31)
[2017-04-20] MEDS: INSULIN ASPART SUPPLEMENTAL SCALE SQ SCH ×4 (08:46→20:31)
[2017-04-20 09:40] LABS: AUTOMATED NEUTROPHIL # 8.6 TH/MM3 (1.8-7.7); BASOPHIL # 0.1 TH/MM3 (0-0.2); BASOPHIL % 0.7 % (0.0-2.0); EOSINOPHIL # 0.2 TH/MM3 (0-0.4); EOSINOPHIL % 1.9 % (0.0-4.0); HEMATOCRIT 33.7 % (39.0-51.0); HEMOGLOBIN 11.2 GM/DL (13.0-17.0); LYMPH % 15.2 % (9.0-44.0); LYMPHOCYTE # 1.8 TH/MM3 (1.0-4.8); MEAN CELL VOLUME 88.1 FL (80.0-100.0); MEAN CORPUSCULAR HEMOGLOBIN 29.2 PG (27.0-34.0); MEAN CORPUSCULAR HGB CONC 33.2 % (32.0-36.0); MEAN PLATELET VOLUME 8.4 FL (7.0-11.0); MONO % 9.9 % (0.0-8.0); MONOCYTE # 1.2 TH/MM3 (0-0.9); NEUT % 72.3 % (16.0-70.0); PLATELET COUNT 330 TH/MM3 (150-450); RED BLOOD COUNT 3.82 MIL/MM3 (4.50-5.90); RED CELL DISTRIBUTION WIDTH 15.2 % (11.6-17.2); WHITE BLOOD COUNT 11.8 TH/MM3 (4.0-11.0)
[2017-04-20 10:04] LABS: ALBUMIN 2.8 GM/DL (3.4-5.0); BICARBONATE 22.3 MEQ/L (21.0-32.0); CALCIUM 7.8 MG/DL (8.5-10.1); CREATININE 1.01 MG/DL (0.60-1.30); MAGNESIUM 2.4 MG/DL (1.5-2.5); PHOSPHORUS 1.4 MG/DL (2.5-4.9)
--- NOTE | 2017-04-20 11:09 | HHI.PR ---
Subjective Remarks He says he is feeling all right. Denies any chest pain or shortness of breath. Requests advance diet. Objective Vital Signs Date Time Temp Pulse Resp B/P (MAP) Pulse Ox O2 Delivery O2 Flow Rate FiO2 04/20/17 08:43 98.0 72 17 133/66 (88) 95 04/20/17 08:00 Room Air 2.00 04/20/17 08:00 71 04/20/17 04:01 66 04/20/17 04:00 98.5 64 16 142/64 (90) 95 04/20/17 00:00 98.6 66 18 135/61 (85) 95 04/20/17 00:00 66 04/19/17 20:00 71 04/19/17 20:00 Room Air 04/19/17 20:00 98.6 74 18 154/74 (100) 95 04/19/17 16:03 98.4 68 18 155/71 (99) 92 04/19/17 16:00 72 04/19/17 12:29 97.9 64 18 179/74 (109) 95 04/19/17 11:53 69 I/O 04/19/17 04/19/17 04/19/17 04/20/17 04/20/17 04/20/17 07:00 15:00 23:00 07:00 15:00 23:00 Intake Total 400 ml 1260 ml Output Total 2000 ml Balance 400 ml -740 ml Intake Oral 960 ml IV Total 400 ml 300 ml Output Urine Total 2000 ml # Voids 2 # Bowel Movements 0 Result Diagram: 04/20/17 0840 04/20/17 0740 Objective Remarks GENERAL: lying in bed. Appears comfortable. Alert and oriented 3. SKIN: Warm and dry. HEAD: Normocephalic. EYES: No scleral icterus. No injection or drainage. NECK: Supple, trachea midline. No JVD or lymphadenopathy. CARDIOVASCULAR: Regular rate and rhythm without murmurs, gallops, or rubs. RESPIRATORY: Breath sounds equal bilaterally. No accessory muscle use. GASTROINTESTINAL: Abdomen soft, non-tender, nondistended. MUSCULOSKELETAL: No cyanosis, or edema. BACK: Nontender without obvious deformity. No CVA tenderness. A/P Assessment and Plan //Mesenteric Ischemia: h/o mesenteric artery stenosis w/ progressive abdominal pain following meals, transferred from [facility] for eval w/ Dr. Gomez. CT Abd /Pelvis from w/ 80% calcified stenosis of proximal celiac axis and 50-60% calcified stenosis of proximal SMA, records reviewed by me. Consult for Dr. Gomez placed, will eval. IVF for hydration, anticoagulation per vascular. Resume Statin, Metoprolol. = Plan for surgery on . We'll advance diet to full liquid. //Abdominal Pain: secondary to above, analgesics/antiemetics as needed. = Approved. Continue to monitor //Hypophosphatemia. Phosphorus 1.4. Replaced. Continue to monitor. //HTN: Pressures acceptable. continue Home medications, monitor BP. // DM: Sliding scale w/ Accu-Cheks, hold Insulin as pt NPO //Tobacco Abuse: Pt counselled. Ativan prn. No NicoDerm to avoid vasoconstriction. //DVT Prophylaxis: Anticoagulation post intervention. Discharge Planning Plan for surgery on . PT following. Appreciate assistance. Ananth Flores MD Apr 20, 2017 11:09
[2017-04-20] MEDS ORDERED: POTASSIUM PHOSPHATE INJ 15 MMOL in SODIUM CHLORIDE 0.9% INJ 150 ML IV ONE (11:15)
--- NOTE | 2017-04-20 11:37 | PD.VS.PN ---
Subjective Subjective/Hospital Course Pt in bed alert in NAD Pt c/o post-prandial abdominal pain worsening very time he eats (Macey Lafleur) Objective Vitals/I&O Date Time Temp Pulse Resp B/P (MAP) Pulse Ox O2 Delivery O2 Flow Rate FiO2 04/20/17 08:43 98.0 72 17 133/66 (88) 95 04/20/17 08:00 Room Air 2.00 04/20/17 08:00 71 04/20/17 04:01 66 04/20/17 04:00 98.5 64 16 142/64 (90) 95 04/20/17 00:00 98.6 66 18 135/61 (85) 95 04/20/17 00:00 66 04/19/17 20:00 71 04/19/17 20:00 Room Air 04/19/17 20:00 98.6 74 18 154/74 (100) 95 04/19/17 16:03 98.4 68 18 155/71 (99) 92 04/19/17 16:00 72 04/19/17 12:29 97.9 64 18 179/74 (109) 95 04/19/17 11:53 69 Physical Exam GENERAL: A&Ox3, NAD, GCS15 SKIN: Warm and dry. GASTROINTESTINAL: Abdomen soft, non-tender, nondistended. + BS MUSCULOSKELETAL: No cyanosis, or edema. (Macey Lafleur) Laboratory Laboratory Tests Test 04/19/17 16:44 04/20/17 07:40 04/20/17 08:40 Blood Urea Nitrogen 6 8 Creatinine 0.96 1.01 Random Glucose 125 107 Calcium Level 7.5 7.8 Magnesium Level 2.0 2.4 Sodium Level 134 135 Potassium Level 3.0 3.5 Chloride Level 101 105 Carbon Dioxide Level 25.8 22.3 Anion Gap 7 8 Estimat Glomerular Filtration Rate 76 71 Albumin 2.8 Phosphorus Level 1.4 White Blood Count 11.8 Red Blood Count 3.82 Hemoglobin 11.2 Hematocrit 33.7 Mean Corpuscular Volume 88.1 Mean Corpuscular Hemoglobin 29.2 Mean Corpuscular Hemoglobin Concent 33.2 Red Cell Distribution Width 15.2 Platelet Count 330 Mean Platelet Volume 8.4 Neutrophils (%) (Auto) 72.3 Lymphocytes (%) (Auto) 15.2 Monocytes (%) (Auto) 9.9 Eosinophils (%) (Auto) 1.9 Basophils (%) (Auto) 0.7 Neutrophils # (Auto) 8.6 Lymphocytes # (Auto) 1.8 Monocytes # (Auto) 1.2 Eosinophils # (Auto) 0.2 Basophils # (Auto) 0.1 CBC Comment DIFF FINAL Differential Comment (Macey Lafleur) Assessment and Plan Assessment: (1) post prandial pain (2) Abdominal pain Plan Abdominal pain that may be related to mesenteric ischemia, clearly no peritonitis at present. Pt continues w/ postprandial pain exacerbated after eating Abdomen S/NT, + BS Plan Planning a mesenteric angiogram w/ possible stent placement w/ Dr. Gomez on () Discussed and reviewed w/ pt Pt agrees w/ plan Questions answered Pt scheduled and consent signed Macey Lafleur [employer] [facility] [phone] (Macey Lafleur) Plan Visceral artery occlusive disease. Potentially symptomatic,. Based on outside CTA, appears to be amenable to endovascular therapy. Plan for mesenteric angiogram on . (Zeferino Gomez MD) Macey Lafleur Apr 20, 2017 11:37 Zeferino Gomez MD Apr 20, 2017 12:43
[2017-04-20] MEDS: MAGNESIUM HYDROXIDE SUSP 30 ML CUP PO PRN (11:52)
[2017-04-20] MEDS: TAMSULOSIN HCL 0.4 MG CAP PO SCH (20:29)
[2017-04-20] MEDS: ATORVASTATIN 40 MG TAB PO SCH (20:30)
[2017-04-21] VITALS (8 sets, daily range): BP systolic 133–163; BP diastolic 60–88; PULSE 60–71; RESP 15–18; TEMP 97.2–98.3; O2SAT 95–96
--- NOTE | 2017-04-21 06:49 | PD.VS.PN ---
Pre-operative Note Pre-operative diagnosis: mesenteric occlusive disease Planned procedure: Mesenteric angiogram, possible SMA and celiac stents Interval History: Pt admitted with post-prandial abdominal pain. Stable. Labs: Laboratory Results Test 04/19/17 08:38 04/20/17 07:40 04/20/17 08:40 Prothromb Time International Ratio 1.0 RATIO Anion Gap 8 MEQ/L (5-15) Blood Urea Nitrogen 8 MG/DL (7-18) Creatinine 1.01 MG/DL (0.60-1.30) Random Glucose 107 MG/DL (74-106) Albumin 2.8 GM/DL (3.4-5.0) Calcium Level 7.8 MG/DL (8.5-10.1) Phosphorus Level 1.4 MG/DL (2.5-4.9) Magnesium Level 2.4 MG/DL (1.5-2.5) Sodium Level 135 MEQ/L (136-145) Potassium Level 3.5 MEQ/L (3.5-5.1) Chloride Level 105 MEQ/L (98-107) Carbon Dioxide Level 22.3 MEQ/L (21.0-32.0) Hematocrit 33.7 % (39.0-51.0) Hemoglobin 11.2 GM/DL (13.0-17.0) Mean Corpuscular Hemoglobin 29.2 PG (27.0-34.0) Mean Corpuscular Hemoglobin Concent 33.2 % (32.0-36.0) Mean Corpuscular Volume 88.1 FL (80.0-100.0) Mean Platelet Volume 8.4 FL (7.0-11.0) Platelet Count 330 TH/MM3 (150-450) Red Blood Count 3.82 MIL/MM3 (4.50-5.90) Red Cell Distribution Width 15.2 % (11.6-17.2) White Blood Count 11.8 TH/MM3 (4.0-11.0) Blood: none needed Imaging: CTA from OSH reviewed. SMA and celiac with calcific stenosis. Orders: NPO after MN Ancef 2g IV OCTOR Post-operative destination: PACU Operative site marked: No (mesenteric angiogram) Consent: Informed consent has been obtained from Sammy Chicas. I have explained the procedure in detail and discussed the risks, benefits, and potential complications. All questions have been answered. Zeferino Gomez MD Apr 21, 2017 06:49
[2017-04-21] MEDS: INSULIN ASPART SUPPLEMENTAL SCALE SQ SCH ×4 (08:00→21:19)
[2017-04-21] MEDS: DOCUSATE SODIUM 50 MG/SENNA 8.6 MG TAB PO SCH ×2 (09:00→20:37)
[2017-04-21] MEDS: METOPROLOL TARTRATE 25 MG TAB PO SCH ×2 (09:12→20:37)
[2017-04-21] MEDS: SODIUM CHLORIDE 0.9% FLUSH 10 ML FLUSH IV FLUSH SCH ×2 (09:12→21:20)
[2017-04-21 14:17] LABS: AUTOMATED NEUTROPHIL # 6.3 TH/MM3 (1.8-7.7); BASOPHIL # 0.1 TH/MM3 (0-0.2); BASOPHIL % 0.9 % (0.0-2.0); EOSINOPHIL # 0.3 TH/MM3 (0-0.4); EOSINOPHIL % 2.8 % (0.0-4.0); HEMATOCRIT 32.6 % (39.0-51.0); LYMPH % 23.9 % (9.0-44.0); LYMPHOCYTE # 2.4 TH/MM3 (1.0-4.8); MEAN CORPUSCULAR HEMOGLOBIN 29.2 PG (27.0-34.0); MEAN CORPUSCULAR HGB CONC 33.6 % (32.0-36.0); MEAN PLATELET VOLUME 7.9 FL (7.0-11.0); MONO % 8.5 % (0.0-8.0); MONOCYTE # 0.8 TH/MM3 (0-0.9); NEUT % 63.9 % (16.0-70.0); PLATELET COUNT 358 TH/MM3 (150-450); RED BLOOD COUNT 3.75 MIL/MM3 (4.50-5.90); RED CELL DISTRIBUTION WIDTH 15.1 % (11.6-17.2); WHITE BLOOD COUNT 9.9 TH/MM3 (4.0-11.0)
[2017-04-21 14:49] LABS: ALBUMIN 2.9 GM/DL (3.4-5.0); BICARBONATE 23.5 MEQ/L (21.0-32.0); CREATININE 1.1 MG/DL (0.60-1.30); PHOSPHORUS 1.5 MG/DL (2.5-4.9)
[2017-04-21 14:56] LABS: CALCIUM 7.4 MG/DL (8.5-10.1)
[2017-04-21] MEDS: TAMSULOSIN HCL 0.4 MG CAP PO SCH (20:37)
[2017-04-21] MEDS: ATORVASTATIN 40 MG TAB PO SCH (20:37)
[2017-04-21] MEDS ORDERED: POTASSIUM PHOSPHATE INJ 15 MMOL in SODIUM CHLORIDE 0.9% INJ 150 ML IV ONE (22:45)
--- NOTE | 2017-04-21 22:45 | HHI.PR ---
Subjective Remarks Patient seen today around noon. He denies any pain. Denies any shortness breath. Requesting increase in diet. We discussed the need to avoid overtaxing his gut due to what appears to be intestinal angina. Objective Vital Signs Date Time Temp Pulse Resp B/P (MAP) Pulse Ox O2 Delivery O2 Flow Rate FiO2 04/21/17 20:00 97.9 68 18 163/76 (105) 95 04/21/17 16:15 98.3 64 16 142/60 (87) 96 04/21/17 16:00 66 04/21/17 12:00 98.3 67 18 142/63 (89) 96 04/21/17 12:00 60 04/21/17 08:00 98.0 67 18 135/63 (87) 96 04/21/17 08:00 71 04/21/17 07:00 Room Air 04/21/17 04:10 64 04/21/17 04:00 97.2 71 16 133/88 (103) 96 04/21/17 00:00 60 04/21/17 00:00 97.8 64 15 146/66 (92) 95 I/O 04/20/17 04/20/17 04/20/17 04/21/17 04/21/17 04/21/17 07:00 15:00 23:00 07:00 15:00 23:00 Intake Total 1115 ml 500 ml 960 ml Output Total 400 ml Balance 715 ml 500 ml 960 ml Intake Oral 960 ml 500 ml 960 ml IV Total 155 ml Output Urine Total 400 ml # Voids 4 4 # Bowel Movements 1 Result Diagram: 04/21/17 1340 04/21/17 1340 Objective Remarks GENERAL: lying in bed. Appears comfortable. Alert and oriented 3.no change on exam SKIN: Warm and dry. HEAD: Normocephalic. EYES: No scleral icterus. No injection or drainage. NECK: Supple, trachea midline. No JVD or lymphadenopathy. CARDIOVASCULAR: Regular rate and rhythm without murmurs, gallops, or rubs. RESPIRATORY: Breath sounds equal bilaterally. No accessory muscle use. GASTROINTESTINAL: Abdomen soft, non-tender, nondistended. MUSCULOSKELETAL: No cyanosis, or edema. BACK: Nontender without obvious deformity. No CVA tenderness. A/P Assessment and Plan //Mesenteric Ischemia: h/o mesenteric artery stenosis w/ progressive abdominal pain following meals, transferred from [facility] for eval w/ Dr. Gomez. CT Abd /Pelvis from w/ 80% calcified stenosis of proximal celiac axis and 50-60% calcified stenosis of proximal SMA, records reviewed by me. Consult for Dr. Gomez placed, will eval. IVF for hydration, anticoagulation per vascular. Resume Statin, Metoprolol. = Plan for surgery on . We'll advance diet to full liquid. = 04/21. Plan for surgery tomorrow. Nothing by mouth at midnight. //Abdominal Pain: secondary to above, analgesics/antiemetics as needed. 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 Improved on clears/full liquid diet.. Continue to monitor //Hypophosphatemia. Phosphorus 1.4. Replaced. Continue to monitor. = 04/21. Phosphorus 1.5. Replaced again. Recheck tomorrow. //Hypokalemia. = 04/21. Potassium 3.3. Replace and monitor. //HTN: Blood Pressures acceptable. continue Home medications, monitor BP. // DM: Sliding scale w/ Accu-Cheks, hold Insulin as pt NPO //Tobacco Abuse: Pt counselled. Ativan prn. No NicoDerm to avoid vasoconstriction. //DVT Prophylaxis: Anticoagulation post intervention. Discharge Planning Plan for surgery on . PT following. Appreciate assistance. Annath Flores MD Apr 21, 2017 22:45
[2017-04-22] VITALS (8 sets, daily range): BP systolic 114–138; BP diastolic 57–65; PULSE 59–83; RESP 18–20; TEMP 97.5–98.5; O2SAT 95–98
[2017-04-22] MEDS ORDERED: POVIDONE IODINE 5% (ANTISEPSIS KIT) 4 APPLICATIONS EACH NARE PRN (04:45)
[2017-04-22] MEDS ORDERED: LACTATED RINGER'S 1000 ML IV PRN (04:45)
[2017-04-22] MEDS ORDERED: CHLORHEXIDINE GLUCONATE 2 % 1 PACK (2 CLOTHS) TOPICAL PRN (04:45)
[2017-04-22] MEDS ORDERED: SODIUM CHLORID 0.9% 500 ML IV PRN (04:45)
[2017-04-22] MEDS ORDERED: BUPIVACAINE/EPINEPHRINE 0.5% PF 30 ML VIAL ONE (06:51)
[2017-04-22] MEDS ORDERED: HEPARIN-NS/PF INJ 500 ML ONE (06:52)
[2017-04-22] MEDS: METOPROLOL TARTRATE 25 MG TAB PO SCH ×2 (07:25→21:54)
[2017-04-22] MEDS ORDERED: ceFAZolin 2 GM PREMIX 50 ML ONE (07:49)
[2017-04-22] MEDS: INSULIN ASPART SUPPLEMENTAL SCALE SQ SCH ×4 (08:00→21:54)
[2017-04-22] MEDS ORDERED: HEPARIN SODIUM - IV 10,000 UNITS/10 ML VIAL ONE (08:07)
[2017-04-22] MEDS ORDERED: IOHEXOL 300 MG/ML 100 ML BTL (for Rad CT) OTHER ONE (08:09)
[2017-04-22] MEDS: DOCUSATE SODIUM 50 MG/SENNA 8.6 MG TAB PO SCH ×2 (08:22→21:54)
[2017-04-22] MEDS: SODIUM CHLORIDE 0.9% FLUSH 10 ML FLUSH IV FLUSH SCH ×2 (08:22→21:54)
--- NOTE | 2017-04-22 09:25 | HHI.PR ---
cc: Zeferino Gomez MD Immediate Post Op Note Procedure Date: Apr 22, 2017 Pre Op Diagnosis: mesenteric ischemia Post Op Diagnosis: mesenteric ischemia Surgeon: Zeferino Gomez Pull Over(s): none Procedure: 1. Mesenteric angiogram 2. SMA stent with 6x 22 iCAST 3. celiac stent with 7 x 22 iCAST 4. L brachial artery exposure Findings: successful [employer] DES[employer]/stent of SMA and celiac Additional Information: palpable radial pulse at end of case Complications: none Specimen(s) removed: none Estimated blood loss: 50mL Anesthesia: General Drains: None Fluids: 950mL IVF Patient to: PACU Patient Condition: Good Implant/Devices: SEE IMPLANT LOG (if applicable) Date/Time of Procedure: SEE SURGICAL CARE RECORD Zeferino Gomez MD Apr 22, 2017 09:25
[2017-04-22] MEDS ORDERED: CLOPIDOGREL 75 MG TAB PO ONE (10:30)
[2017-04-22] MEDS ORDERED: DO NOT ADM ANY ANTICOAGULANT DRUGS PRN (11:30)
[2017-04-22 11:32] LABS: AUTOMATED NEUTROPHIL # 4.9 TH/MM3 (1.8-7.7); BASOPHIL # 0.1 TH/MM3 (0-0.2); BASOPHIL % 1.1 % (0.0-2.0); EOSINOPHIL # 0.3 TH/MM3 (0-0.4); EOSINOPHIL % 3.4 % (0.0-4.0); HEMATOCRIT 33.4 % (39.0-51.0); LYMPH % 26.7 % (9.0-44.0); LYMPHOCYTE # 2.2 TH/MM3 (1.0-4.8); MEAN CELL VOLUME 88.1 FL (80.0-100.0); MEAN CORPUSCULAR HGB CONC 32.9 % (32.0-36.0); MEAN PLATELET VOLUME 7.9 FL (7.0-11.0); MONO % 7.7 % (0.0-8.0); MONOCYTE # 0.6 TH/MM3 (0-0.9); NEUT % 61.1 % (16.0-70.0); PLATELET COUNT 372 TH/MM3 (150-450); RED BLOOD COUNT 3.79 MIL/MM3 (4.50-5.90); RED CELL DISTRIBUTION WIDTH 15.4 % (11.6-17.2); WHITE BLOOD COUNT 8.1 TH/MM3 (4.0-11.0)
[2017-04-22 11:58] LABS: ALBUMIN 2.7 GM/DL (3.4-5.0); BICARBONATE 21.8 MEQ/L (21.0-32.0); CALCIUM 7.4 MG/DL (8.5-10.1); CREATININE 1.13 MG/DL (0.60-1.30); MAGNESIUM 2.4 MG/DL (1.5-2.5); PHOSPHORUS 2.7 MG/DL (2.5-4.9)
[2017-04-22] MEDS ORDERED: ONDANSETRON HCL 4 MG/2 ML VIAL IV ONE (12:00)
[2017-04-22] MEDS ORDERED: ePHEDrine/NS 25 MG/5 ML SYRINGE IV ONE (12:00)
[2017-04-22] MEDS ORDERED: GLYCOPYRROLATE 1 MG/5 ML SYRINGE IV PUSH ONE (12:00)
[2017-04-22] MEDS ORDERED: LACTATED RINGER'S 1000 ML INJ 1,000 ML IV ONE (12:00)
[2017-04-22] MEDS ORDERED: NEOSTIGMINE 5 MG/5 ML SYRINGE IV PUSH ONE (12:00)
[2017-04-22] MEDS ORDERED: PROPOFOL 200 MG/20 ML AMP IV ONE (12:00)
[2017-04-22] MEDS ORDERED: LIDOCAINE HCL 1% PF 5 ML SYRINGE OTHER ONE (12:00)
[2017-04-22] MEDS ORDERED: PHENYLEPH/NS 1000 MCG/10 ML SYR IV ONE (12:00)
[2017-04-22] MEDS ORDERED: CHOLECALCIFEROL (VIT D3) 5000 UNIT CAP PO ONE (17:45)
--- NOTE | 2017-04-22 17:45 | HHI.PR ---
Subjective Remarks Patient seen today around noon, following angiogram with stenting. Would like to eat. Objective Vital Signs Date Time Temp Pulse Resp B/P (MAP) Pulse Ox O2 Delivery O2 Flow Rate FiO2 04/22/17 16:00 97.7 77 18 114/59 (77) 95 04/22/17 14:29 2.00 04/22/17 12:31 Room Air 04/22/17 12:00 97.5 68 18 114/57 (76) 95 04/22/17 09:39 97.8 70 17 106/53 (70) 97 Nasal Cannula 2 04/22/17 04:00 Room Air 2.00 04/22/17 04:00 61 04/22/17 04:00 98.5 66 20 138/62 (87) 97 04/22/17 00:00 59 04/22/17 00:00 Room Air 2.00 04/22/17 00:00 98.1 81 20 133/65 (87) 97 04/21/17 20:00 Room Air 2.00 04/21/17 20:00 97.9 68 18 163/76 (105) 95 04/21/17 20:00 69 I/O 04/21/17 04/21/17 04/21/17 04/22/17 04/22/17 04/22/17 07:00 15:00 23:00 07:00 15:00 23:00 Intake Total 500 ml 960 ml 950 ml Output Total 50 ml Balance 500 ml 960 ml 900 ml Intake Oral 500 ml 960 ml Other 950 ml Estimated Blood Loss 50 ml # Voids 4 4 4 # Bowel Movements 1 0 Result Diagram: 04/22/17 1050 04/22/17 1050 Objective Remarks GENERAL: sitting up in bed. Appears comfortable. Alert and oriented 3. SKIN: Warm and dry. HEAD: Normocephalic. EYES: No scleral icterus. No injection or drainage. NECK: Supple, trachea midline. No JVD or lymphadenopathy. CARDIOVASCULAR: Regular rate and rhythm without murmurs, gallops, or rubs. RESPIRATORY: Breath sounds equal bilaterally. No accessory muscle use. GASTROINTESTINAL: Abdomen soft, non-tender, nondistended. MUSCULOSKELETAL: No cyanosis, or edema. A/P Assessment and Plan //Mesenteric Ischemia: h/o mesenteric artery stenosis w/ progressive abdominal pain following meals, transferred from [facility] for eval w/ Dr. Gomez. CT Abd /Pelvis from w/ 80% calcified stenosis of proximal celiac axis and 50-60% calcified stenosis of proximal SMA, records reviewed by me. Consult for Dr. Gomez placed, will eval. IVF for hydration, anticoagulation per vascular. Resume Statin, Metoprolol. = Plan for surgery on . We'll advance diet to full liquid. = 04/21. Plan for surgery tomorrow. Nothing by mouth at midnight. 04/22. Patient doing well status post angiogram, stenting. Advance diet a heart healthy, monitor improvement. //Abdominal Pain: secondary to above, analgesics/antiemetics as needed. 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 Improved on clears/full liquid diet.. Continue to monitor = Appears resolved. Continue to monitor. //Hypophosphatemia. Phosphorus 1.4. Replaced. Continue to monitor. = 04/21. Phosphorus 1.5. Replaced again. Recheck tomorrow. //Hypovitaminosis D //Hypocalcemia. -Calcium 7.4, however when corrected for albumin, is 8.3. = Vitamin D 21.9. Start replacement. Will need recheck in 3 months. //Hypokalemia. = 04/21. Potassium 3.3. Replace and monitor. = Resolved after replacement. Recheck tomorrow due to risk of refeeding syndrome.. //HTN: Blood Pressures acceptable. continue Home medications, monitor BP. // DM: Sliding scale w/ Accu-Cheks, hold Insulin as pt NPO //Tobacco Abuse: Pt counselled. Ativan prn. No NicoDerm to avoid vasoconstriction. //DVT Prophylaxis: Anticoagulation post intervention. Discharge Planning If patient tolerating food, likely discharge home tomorrow if cleared by vascular surgery. Ananth Flores MD Apr 22, 2017 17:45
[2017-04-22] MEDS: TAMSULOSIN HCL 0.4 MG CAP PO SCH (21:54)
[2017-04-22] MEDS: ATORVASTATIN 40 MG TAB PO SCH (21:54)
[2017-04-23 00:36] VITALS: BP 114/58; PULSE 74; RESP 20; TEMP 97.3; O2SAT 96
[2017-04-23 03:44] VITALS: PULSE 70
[2017-04-23 04:02] VITALS: BP 133/60; PULSE 70; RESP 20; TEMP 98.2; O2SAT 97
[2017-04-23 07:28] LABS: BASOPHIL # 0.1 TH/MM3 (0-0.2); BASOPHIL % 0.7 % (0.0-2.0); EOSINOPHIL # 0.4 TH/MM3 (0-0.4); EOSINOPHIL % 3.8 % (0.0-4.0); HEMATOCRIT 33.1 % (39.0-51.0); HEMOGLOBIN 11.1 GM/DL (13.0-17.0); LYMPH % 19.8 % (9.0-44.0); LYMPHOCYTE # 2.1 TH/MM3 (1.0-4.8); MEAN CELL VOLUME 87.3 FL (80.0-100.0); MEAN CORPUSCULAR HEMOGLOBIN 29.4 PG (27.0-34.0); MEAN CORPUSCULAR HGB CONC 33.7 % (32.0-36.0); MEAN PLATELET VOLUME 7.5 FL (7.0-11.0); MONO % 8.6 % (0.0-8.0); MONOCYTE # 0.9 TH/MM3 (0-0.9); NEUT % 67.1 % (16.0-70.0); PLATELET COUNT 363 TH/MM3 (150-450); RED BLOOD COUNT 3.79 MIL/MM3 (4.50-5.90); RED CELL DISTRIBUTION WIDTH 15.1 % (11.6-17.2); WHITE BLOOD COUNT 10.4 TH/MM3 (4.0-11.0)
[2017-04-23] MEDS: INSULIN ASPART SUPPLEMENTAL SCALE SQ SCH ×2 (07:50→12:00)
[2017-04-23 07:57] LABS: ALBUMIN 2.6 GM/DL (3.4-5.0); BICARBONATE 20.4 MEQ/L (21.0-32.0); CALCIUM 7.8 MG/DL (8.5-10.1); MAGNESIUM 2.5 MG/DL (1.5-2.5); PHOSPHORUS 2.6 MG/DL (2.5-4.9)
[2017-04-23 07:58] LABS: CREATININE 1.32 MG/DL (0.60-1.30)
[2017-04-23 08:00] VITALS: PULSE 66
[2017-04-23 08:44] VITALS: BP 124/62; PULSE 69; RESP 18; TEMP 98.2; O2SAT 95
[2017-04-23] MEDS ORDERED: CLOPIDOGREL 75 MG TAB PO SCH (09:00)
[2017-04-23] MEDS ORDERED: CHOLECALCIFEROL (VIT D3) 5000 UNIT CAP PO SCH (09:00)
[2017-04-23] MEDS: METOPROLOL TARTRATE 25 MG TAB PO SCH (09:05)
[2017-04-23] MEDS: DOCUSATE SODIUM 50 MG/SENNA 8.6 MG TAB PO SCH (09:06)
[2017-04-23] MEDS: SODIUM CHLORIDE 0.9% FLUSH 10 ML FLUSH IV FLUSH SCH (09:08)
[2017-04-23] MEDS ORDERED: SODIUM CHLORID 0.9% 500 ML INJ 500 ML IV ONE (09:30)
[2017-04-23] MEDS ORDERED: SODIUM CHLOR 0.9% 1000 ML INJ 1,000 ML IV SCH (09:30)
[2017-04-23] MEDS ORDERED: PLAV75TA29 PO (11:48)
[2017-04-23] MEDS ORDERED: HYDR-3799 PO (11:48)
[2017-04-23] MEDS ORDERED: ASPI81TA23 PO (11:53)
[2017-04-23] MEDS ORDERED: VITA2000 PO (11:55)
--- NOTE | 2017-04-23 11:57 | HHI.PR ---
Subjective Remarks He says he is feeling well. Like to go home. A large meal last night with no issues Objective Vital Signs Date Time Temp Pulse Resp B/P (MAP) Pulse Ox O2 Delivery O2 Flow Rate FiO2 04/23/17 09:31 Room Air 04/23/17 08:44 98.2 69 18 124/62 (82) 95 04/23/17 08:00 66 04/23/17 04:02 Room Air 04/23/17 04:02 98.2 70 20 133/60 (84) 97 04/23/17 03:44 70 04/23/17 00:36 Room Air 04/23/17 00:36 97.3 74 20 114/58 (76) 96 04/22/17 23:49 75 04/22/17 21:46 98 04/22/17 20:58 97.6 83 20 127/59 (81) 96 04/22/17 20:58 Room Air 04/22/17 19:45 75 04/22/17 16:00 97.7 77 18 114/59 (77) 95 04/22/17 16:00 67 04/22/17 14:29 2.00 04/22/17 12:31 Room Air 04/22/17 12:00 97.5 68 18 114/57 (76) 95 I/O 04/22/17 04/22/17 04/22/17 04/23/17 04/23/17 04/23/17 07:00 15:00 23:00 07:00 15:00 23:00 Intake Total 950 ml 710 ml Output Total 50 ml Balance 900 ml 710 ml Intake Oral 710 ml Other 950 ml Estimated Blood Loss 50 ml # Voids 4 4 # Bowel Movements 0 0 Result Diagram: 04/23/17 0554 04/23/17 0559 Objective Remarks GENERAL: sitting up in bed. Appears comfortable. Alert and oriented 3. SKIN: Warm and dry. HEAD: Normocephalic. EYES: No scleral icterus. No injection or drainage. NECK: Supple, trachea midline. No JVD. CARDIOVASCULAR: Regular rate and rhythm without murmurs, gallops, or rubs. RESPIRATORY: Breath sounds equal bilaterally. No accessory muscle use. GASTROINTESTINAL: Abdomen soft, non-tender, nondistended. MUSCULOSKELETAL: No cyanosis, or edema. A/P Assessment and Plan //Mesenteric Ischemia: h/o mesenteric artery stenosis w/ progressive abdominal pain following meals, transferred from [facility] for eval w/ Dr. Gomez. CT Abd /Pelvis from w/ 80% calcified stenosis of proximal celiac axis and 50-60% calcified stenosis of proximal SMA, records reviewed by me. Consult for Dr. Gomez placed, will eval. IVF for hydration, anticoagulation per vascular. Resume Statin, Metoprolol. = Plan for surgery on . We'll advance diet to full liquid. = 04/21. Plan for surgery tomorrow. Nothing by mouth at midnight. 04/22. Patient doing well status post angiogram, stenting. Advance diet a heart healthy, monitor improvement. = 04/23. Patient doing well. I'll regards to her without any issues. Discussed with vascular surgery. Patient cleared to go home. //Acute kidney injury. Creatinine 1.3. Likely secondary to being nothing by mouth yesterday. He did get 70 cc of contrast during the angiogram yesterday. We'll give him small bolus today, repeat labs as outpatient to be copy to PCP. //Abdominal Pain: secondary to above, analgesics/antiemetics as needed. 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 Improved on clears/full liquid diet.. Continue to monitor = Appears resolved. Continue to monitor. //Hypophosphatemia. Phosphorus 1.4. Replaced. Continue to monitor. = 04/21. Phosphorus 1.5. Replaced again. Recheck tomorrow. = Resolved after replacement. //Hypovitaminosis D //Hypocalcemia. -Calcium 7.4, however when corrected for albumin, is 8.3. = Vitamin D 21.9. Start replacement. Will need recheck in 3 months. = Sent home on replacement. //Hypokalemia. = 04/21. Potassium 3.3. Replace and monitor. = Resolved after replacement. Recheck tomorrow due to risk of refeeding syndrome.. //HTN: Blood Pressures acceptable. continue Home medications, monitor BP. // DM: Sliding scale w/ Accu-Cheks, hold Insulin as pt NPO //Tobacco Abuse: Pt counselled. Ativan prn. No NicoDerm to avoid vasoconstriction. //DVT Prophylaxis: Anticoagulation post intervention. Discharge Planning discharge home today. Follow with primary care. Repeat labs as outpatient copy to primary care. Ananth Flores MD Apr 23, 2017 11:57
--- NOTE | 2017-04-23 11:59 | MP ---
cc: ZEFERINO GOMEZ MD DATE OF SURGERY 04/22/2017 PREOPERATIVE DIAGNOSIS Mesenteric ischemia, visceral artery occlusive disease POSTOPERATIVE DIAGNOSIS Mesenteric ischemia, visceral artery occlusive disease PROCEDURE 1. Left brachial artery exposure. 2. Mesenteric angiogram with selective catheterization of SMA and celiac arteries. 3. SMA stent with a 6 x 22 iCAST. 4. Celiac stent with a 7 x 22 iCAST. ATTENDING SURGEON Zeferino Gomez. ANESTHESIA General. INDICATION Mr. Chicas is a 76-year-old gentleman with visceral artery occlusive disease and recurrent abdominal pain that is now postprandial. He is taken to the operating room for endovascular evaluation and treatment. DESCRIPTION OF PROCEDURE Informed consent was obtained from the patient. He was taken to the operating room and placed supine on the operating table. An appropriate timeout was taken to ensure the patient's identity, operative site and planned procedure. Two grams of Ancef was initiated prior to skin incision and will be discontinued after a single preoperative dose. Everyone in the room agreed with the timeout and we proceeded. His left arm was prepped and draped as well as groins. An incision was made over the antecubitum and carried down to subcutaneous tissue with electrocautery. The brachial artery was identified and dissected free and encircled with a vessel loop. The patient was systemically heparinized with 3000 units of IV heparin. A 21-gauge micropuncture needle was used to access the brachial artery. This was exchanged using Seldinger technique for a micropuncture sheath through which a 0.035 Glidewire was introduced. The micropuncture sheath was changed for a 5 Ecuadorean sheath. The Glidewire was navigated to the aorta and a pigtail catheter was placed over the wire into the sheath. The pigtail catheter and Glidewire were used to navigate down to the paravisceral aorta and an aortogram was obtained. 3000 additional units of intravenous heparin were administered. A Corey wire was introduced through the pigtail and the pigtail and 5 Ecuadorean sheath were removed. A 7 Ecuadorean, 70 cm sheath was introduced and an MPA catheter was placed over the Corey was exchanged for a Glidewire. Using the glide and MPA we were able to navigate into the SMA and this was confirmed angiographically. The glide was exchanged for a Corey, the MPA catheter was removed, and the SMA was treated with a 6 x 22 high iCAST that had an excellent result without any recoil extravasation and was well-seated. The wire and catheter were pulled back into the aorta and the glide an MPA used to navigate into the celiac artery. Once we were confirmed to be in the celiac artery this was predilated with a 5 mm balloon and then a 7 x 22 iCAST was placed over the Corey wire into the orifice of the celiac artery. The completion angiogram showed excellent result without any recoil extravasation. The wire, catheter and sheath were removed. The brachial artery was controlled with profunda clamps and the arteriotomy was closed with interrupted 6-0 Prolene sutures. There was a nice pulse at the wrist. The wound was infiltrated with Marcaine and closed with 2-0 Polysorb, 3-0 Polysorb and 4-0 Monocryl. Sponge and needle counts were correct at the end of the case. I was present and scrubbed and performed the entire procedure. MD KAN Chan/GIOVANNI /11:08 AM /11:30 AM
--- NOTE | 2017-04-23 12:01 | HHI.DS ---
Discharge Summary Admission Date Apr 19, 2017 at 00:11 Discharge Date: Apr 23, 2017 Admitting Diagnosis stenosis of the proximal iliac artery (1) Mesenteric ischemia ICD Code: K55.9 - Vascular disorder of intestine, unspecified (2) Abdominal pain ICD Code: R10.9 - Unspecified abdominal pain (3) HTN (hypertension) ICD Code: I10 - Essential (primary) hypertension (4) Tobacco abuse ICD Code: Z72.0 - Tobacco use (5) DM (diabetes mellitus) ICD Code: E11.9 - Type 2 diabetes mellitus without complications Procedures Endovascular stenting of mesenteric arteries. Please see report. Brief History - From Admission This is a 76-year-old male with a PMH of HTN, COPD, DM, Prostate CA, Tobacco Abuse and Mesenteric Artery Stenosis who was transferred from [facility] for evaluation by Dr. Gomez for mesenteric ischemia. Previous admit 02/10- for Sepsis w/ Gangrenous Cholecystitis, found to have mesenteric artery stenosis and underwent Lap Magda by Dr. Viveros on 02/12/17. Per patient he's had intermittent episodes of abdominal pain/cramping for a few weeks. States pain is dull, intermittent, 8/10, associated w/ meals, non-radiating. Yesterday was having lunch and developed severe abdominal pain at which time he went to [facility]. CT Abd/Pelvis from w/ 80% calcified stenosis of proximal celiac access and 50-60% calcified stenosis of proximal SMA. Dr. Gomez consulted and accepted pt in transfer. CBC/BMP: 04/23/17 0554 04/23/17 0559 Significant Findings Laboratory Tests Test 04/21/17 13:40 04/22/17 10:50 04/23/17 05:54 04/23/17 05:59 Red Blood Count 3.75 MIL/MM3 (4.50-5.90) 3.79 MIL/MM3 (4.50-5.90) 3.79 MIL/MM3 (4.50-5.90) Hemoglobin 11.0 GM/DL (13.0-17.0) 11.0 GM/DL (13.0-17.0) 11.1 GM/DL (13.0-17.0) Hematocrit 32.6 % (39.0-51.0) 33.4 % (39.0-51.0) 33.1 % (39.0-51.0) Monocytes (%) (Auto) 8.5 % (0.0-8.0) 8.6 % (0.0-8.0) Random Glucose 172 MG/DL (74-106) 191 MG/DL (74-106) 131 MG/DL (74-106) Albumin 2.9 GM/DL (3.4-5.0) 2.7 GM/DL (3.4-5.0) 2.6 GM/DL (3.4-5.0) Calcium Level 7.4 MG/DL (8.5-10.1) 7.4 MG/DL (8.5-10.1) 7.8 MG/DL (8.5-10.1) Phosphorus Level 1.5 MG/DL (2.5-4.9) Sodium Level 135 MEQ/L (136-145) Potassium Level 3.3 MEQ/L (3.5-5.1) Estimat Glomerular Filtration Rate 65 ML/MIN (>89) 63 ML/MIN (>89) 52 ML/MIN (>89) Chloride Level 108 MEQ/L (98-107) 109 MEQ/L (98-107) 25-Hydroxy Vitamin D Total 21.9 ng/ML (30-100) Creatinine 1.32 MG/DL (0.60-1.30) Carbon Dioxide Level 20.4 MEQ/L (21.0-32.0) Hospital Course Patient was monitored closely on the medical floor. Initially surgery was consulted, patient underwent endovascular stenting of mesenteric arteries. Please see report. Patient will be started on aspirin, Plavix. Creatinine did increase from 1.0-1.3 on day of discharge. Small fluid bolus was given. Patient's TEA inhibitor will be discontinued for now, will be started on low dose of hydralazine. Patient will obtain repeat labs as outpatient to be forwarded to primary care. Patient tolerated food following procedure. Will be discharged home. Follow-up with vascular surgery in 2 weeks. For problem-based summary from most recent progress note, please see below. //Mesenteric Ischemia: h/o mesenteric artery stenosis w/ progressive abdominal pain following meals, transferred from [facility] for eval w/ Dr. Gomez. CT Abd /Pelvis from w/ 80% calcified stenosis of proximal celiac axis and 50-60% calcified stenosis of proximal SMA, records reviewed by me. Consult for Dr. Gomez placed, will eval. IVF for hydration, anticoagulation per vascular. Resume Statin, Metoprolol. = Plan for surgery on . We'll advance diet to full liquid. = 04/21. Plan for surgery tomorrow. Nothing by mouth at midnight. 04/22. Patient doing well status post angiogram, stenting. Advance diet a heart healthy, monitor improvement. = 04/23. Patient doing well. I'll regards to her without any issues. Discussed with vascular surgery. Patient cleared to go home. //Acute kidney injury. Creatinine 1.3. Likely secondary to being nothing by mouth yesterday. He did get 70 cc of contrast during the angiogram yesterday. We'll give him small bolus today, repeat labs as outpatient to be copy to PCP. //Abdominal Pain: secondary to above, analgesics/antiemetics as needed. 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 Improved on clears/full liquid diet.. Continue to monitor = Appears resolved. Continue to monitor. //Hypophosphatemia. Phosphorus 1.4. Replaced. Continue to monitor. = 04/21. Phosphorus 1.5. Replaced again. Recheck tomorrow. = Resolved after replacement. //Hypovitaminosis D //Hypocalcemia. -Calcium 7.4, however when corrected for albumin, is 8.3. = Vitamin D 21.9. Start replacement. Will need recheck in 3 months. = Sent home on replacement. //Hypokalemia. = 04/21. Potassium 3.3. Replace and monitor. = Resolved after replacement. Recheck tomorrow due to risk of refeeding syndrome.. //HTN: Blood Pressures acceptable. continue Home medications, monitor BP. // DM: Sliding scale w/ Accu-Cheks, hold Insulin as pt NPO //Tobacco Abuse: Pt counselled. Ativan prn. No NicoDerm to avoid vasoconstriction. //DVT Prophylaxis: Anticoagulation post intervention. Discharge Planning discharge home today. Follow with primary care. Repeat labs as outpatient copy to primary care. Pt Condition on Discharge: Good Discharge Disposition: Discharge Home Discharge Time: > 30 minutes Discharge Instructions DIET: Follow Instructions for: Diabetic Diet Activities you can perform: Regular-No Restrictions Follow up Referrals: PCP Follow-up - 3-5 Days with Swapnil Johnson M.d. Vascular Surgery @ Vascular Surgery with Zeferino Gomez MD New Orders: RENAL FUNCTION PANEL - 3-5 Days New Medications: Aspirin DR (Aspirin EC) 81 Mg Tabdr 81 MG PO DAILY for Blood Clot Prevention for 30 Days, #30 TAB 0 Refills Cholecalciferol (Vitamin D3) 2,000 Unit Cap 2000 UNITS PO DAILY for Nutritional Supplement, #1 BOTTLE 0 Refills Hydralazine HCl (Hydralazine HCl) 25 Mg Tablet 25 MG PO TID for Blood Pressure Management, #90 TAB 0 Refills Clopidogrel (Plavix) 75 Mg Tab 75 MG PO DAILY for Blood Clot Prevention for 30 Days, #30 TAB Continued Medications: Amlodipine (Norvasc) 10 Mg Tab 10 MG PO DAILY for Blood Pressure Management for 30 Days, #30 TAB 0 Refills Atorvastatin (Atorvastatin) 40 Mg Tab 40 MG PO HS for Cholesterol Management for 30 Days, #30 TAB Degarelix Inj (Firmagon Inj) 80 Mg Inj 80 MG SQ Q28D for Chemotherapy Management, #1 VIAL 0 Refills Glipizide (Glipizide) 5 Mg Tab 5 MG PO BIDAC for Blood Sugar Management, #60 TAB 0 Refills Take 30 minutes before a meal Insulin Glargine (Basaglar Kwikpen) 100 Unit/Ml Pen 6 UNITS SQ AC BREAKFAST for Blood Sugar Management, #5 PEN 0 Refills Insulin Glargine,Hum.rec.anlog (Basaglar Kwikpen U-100) 100 Unit/Ml (3 Ml) Insuln.pen 10 SQ HS Loperamide (Loperamide) 2 Mg Cap 2 MG PO DIRECTED PRN for DIARRHEA, CAP 0 Refills One capsule after each loose stool. Not to exceed 8 capsules per day. Metoprolol Tartrate (Metoprolol Tartrate) 25 Mg Tab 12.5 MG PO BID for Blood Pressure Management for 30 Days, #30 TAB Oxycodone (Oxycodone) 10 Mg Tab 10 MG PO Q8H PRN for PAIN, TAB 0 Refills Prochlorperazine Maleate (Prochlorperazine Maleate) 10 Mg Tab 10 MG PO Q6H PRN for NAUSEA OR VOMITING, TAB 0 Refills Tamsulosin (Tamsulosin) 0.4 Mg Cap 0.4 MG PO HS for Manage Prostate Problems, #30 CAP 0 Refills [Calcium Carbonate Chew] () 500 MG CHEW 500 MG CHEW Q8H for Low Calcium for 5 Days, #15 Discontinued Medications: Diltiazem HCl Extended Release (Diltiazem HCl) 360 Mg Cap Lisinopril (Lisinopril) 20 Mg Tab 20 MG PO DAILY, #30 TAB 0 Refills Aannth Flores MD Apr 23, 2017 12:01
[2017-04-23 12:40] VITALS: BP 137/65; PULSE 70; RESP 18; TEMP 97.8; O2SAT 97
== END 2017-04-23 13:29 | disposition home or self-care (01) | DRG 253 ==
LOC: NEPE 23:46 → NEDA 04-19 00:11 → N04B 04-19 02:41
PROVIDERS: ADMIT Internal Medicine; ATTEND Internal Medicine
PROC: 047 Lower Arteries, Dilation (ICD-10-PCS; principal; 2017-04-22 07:41)
PROC: 047 Lower Arteries, Dilation (ICD-10-PCS; 2017-04-22 07:41)
DX: I77.1 Stricture of artery (principal); K55.1 Chronic vascular disorders of intestine; N17.9 Acute kidney failure, unspecified; J44.9 Chronic obstructive pulmonary disease, unspecified; E11.9 Type 2 diabetes mellitus without complications; E83.39 Other disorders of phosphorus metabolism; E83.51 Hypocalcemia; I10 Essential (primary) hypertension; Z72.0 Tobacco use; Z85.46 Personal history of malignant neoplasm of prostate; E87.6 Hypokalemia; E55.9 Vitamin D deficiency, unspecified
CPT/HCPCS: 80048; 80053; 80069; 82306; 82948; 83735; 85025; 85610; 99285; J0690; J1644; J1815; J2270; J2370; J2405; J2710; J3010; J3480; J7030; J7040; J7120; Q9967